=== PATIENT | male | born 1950 | race Caucasian/White ===

== ENCOUNTER 2019-07-22 09:08 | Day surgery (SDC) | payer MEDICARE, MEDICAID ==
[2019-07-14 12:43] LABS: BASOPHILS # (AUTO) 0.1 X10'3 (0-0.2); BASOPHILS % (AUTO) 0.8 % (0-1); EOSINOPHILS # (AUTO) 0.4 X10'3 (0-0.9); EOSINOPHILS % (AUTO) 3.9 % (0-6); LYMPHOCYTES # (AUTO) 2.5 X10'3 (1.1-4.8); LYMPHOCYTES % (AUTO) 23.5 % (21-51); MEAN CORPUSCULAR HEMOGLOBIN 32.7 PG (27.0-31.0); MEAN CORPUSCULAR HGB CONC 34.5 g/dL (33.0-36.5); MEAN CORPUSCULAR VOLUME 94.8 FL (78-98); MONOCYTES # (AUTO) 0.6 X10'3 (0-0.9); MONOCYTES % (AUTO) 5.3 % (2-12); NEUTROPHILS % (AUTO) 66.5 % (42-75); PRE OP HEMATOCRIT 45.5 % (42.0-52.0); PRE OP HEMOGLOBIN 15.7 g/dL (14.0-17.9); PRE OP PLATELET COUNT 238 X10'3 (140-440); RED CELL DISTRIBUTION WIDTH 13.2 % (11.5-14.5)
[2019-07-14 12:54] LABS: ALBUMIN 3.9 G/DL (3.4-5.0); ALKALINE PHOSPHATASE 67 IU/L (46-116); BLOOD UREA NITROGEN 11 MG/DL (7-18); BUN/CREATININE RATIO 12.2 (5.4-32.0); CALCIUM 9.3 MG/DL (8.5-10.1); CHLORIDE 97 MMOL/L (99-107); PRE OP ALT 42 U/L (30-65); PRE OP ANION GAP 10 (8-16); PRE OP AST 23 U/L (10-37); PRE OP BILIRUB, TOTAL 0.5 MG/DL (0.0-1.0); PRE OP POTASSIUM 4.3 MMOL/L (3.4-5.1); PRE OP SODIUM 133 MMOL/L (135-145); TOTAL CARBON DIOXIDE 26.5 MMOL/L (24-32); TOTAL PROTEIN 7.8 G/DL (6.4-8.2); eGFR 84 ML/MIN
[2019-07-14 13:04] LABS: PRE OP GLUCOSE 316 MG/DL (70-104)
[2019-07-14 13:37] LABS: HEMOGLOBIN A1C 10.2 % (4.5-6.2)
[2019-07-14 13:39] LABS: PRE OP PROTIME 10.3 SECONDS (9.0-12.0)
[~2019-07-22] VITALS: Ht 175.3 cm; Wt 87.4 kg
[~2019-07-22 09:08] MED LIST: ARIP2TAB20 PO; ASPI-1264 PO; ATOR20TA66 PO; BACL10TA2 PO; BENA5TAB6 PO; CARV12.545 PO; CHOL50004 PO; FLUO40CA PO; GLIM4TAB4 PO; IPRA3AMP31 INH; METF-950 PO; PANT40TA4 PO
[2019-07-22 09:15] VITALS: BP 141/79
[2019-07-22] MEDS ORDERED: cefazolin/dext.iso 2gm/100ml 100 ML IV ONE (09:25)
[2019-07-22] MEDS ORDERED: ringers solution, lacted 1,000 ML IV SCH ×2 (09:44→09:45)
[2019-07-22] MEDS ORDERED: BUPIVAcaine/PF 2.5 mg/ml (0.25%) 30ml vial ONE (09:45)
[2019-07-22] MEDS ORDERED: fentaNYL/PF 50MCG/1 ML 2ML syringe IV PRN ×2 (09:45)
[2019-07-22] MEDS ORDERED: labetalol 20mg/4ml (5mg/ml) syringe IV PRN (09:45)
[2019-07-22] MEDS ORDERED: hydrALAZINE 20mg/ml inj. IV PRN (09:45)
[2019-07-22] MEDS ORDERED: morphine 4 MG/ML inj SYRINge IV PRN ×2 (09:45)
[2019-07-22] MEDS ORDERED: DOCUMENT DATE & TIME OF BETA-BLOCKER PO ONE (09:45)
[2019-07-22] MEDS ORDERED: famotidine 20mg tablet PO ONE (09:45)
[2019-07-22] MEDS ORDERED: cefazolin/dext.iso 2gm/50ml 50 ML IV ONE (09:45)
[2019-07-22] MEDS ORDERED: albuterol 2.5 MG/3 ML nebule NEB ONE (09:45)
[2019-07-22] MEDS ORDERED: triamcinolone acetonide 40mg/ml inj ONE (09:45)
[2019-07-22] MEDS ORDERED: VANCOMYCIN INJ 1000 MG in NORMAL SALINE 250ml IV.SOLN IV ONE (09:45)
[2019-07-22] MEDS ORDERED: ondansetron/PF 4mg/2ml inj IV PRN (09:45)
[2019-07-22] MEDS ORDERED: insulin regular, human 10 units/0.1 ml syringe SQ ONE (10:00)
[2019-07-22] MEDS ORDERED: fentaNYL/PF 50MCG/1 ML 2ML syringe ONE (10:16)
[2019-07-22] MEDS ORDERED: ondansetron/PF 4mg/2ml inj ONE (10:17)
[2019-07-22] MEDS ORDERED: propofol inj 20 ML IV ONE (10:17)
[2019-07-22] MEDS ORDERED: midazolam 2 mg/2 ml injection ONE (10:17)
[2019-07-22] MEDS ORDERED: sevoflurane 250ml liquid IH ONE (10:19)
[2019-07-22 11:10] VITALS: BP 82/54
--- NOTE | 2019-07-22 11:10 | NUR ---
Received from OR via SON[facility] , accompanied by Anesthesiologist QIAN and report given by Anesthesiolgist. PATIENT WITH 20G PIV IN RIGHT UE RUNNING LR AT 100. LMA IN PLACE. VSS. BIAS WRAP TO RIGHT KNEE WITH + DP PRESENT. Addendum: 07/22/19 at 1119 by Marky Epperson RN, RN Amended: Links added.
[2019-07-22 11:20] VITALS: BP 84/56
[2019-07-22 11:30] VITALS: BP 82/61
[2019-07-22 11:40] VITALS: BP 91/62
[2019-07-22 11:50] VITALS: BP 101/72
--- NOTE | 2019-07-22 12:00 | NUR ---
ALL DC CRITERIA HAS BEEN MET. IV OUT WITHOUT ISSUE. DENIES PAIN. VSS. OUT VIA WHEELCHAIR TO PERSONAL VEHICLE WHERE DROVE PATIENT HOME. PATIENT VOIDED AND DRESSED WITH ASSIST OF . Addendum: 07/22/19 at 1219 by Marky Epperson RN, RN Amended: Links added.
== END 2019-07-22 12:00 | disposition home or self-care (01) ==
LOC: PAS 09:08
PROVIDERS: ATTEND Orthopaedic Surgery
DX: S83.231A Complex tear of medial meniscus, current injury, right knee, initial encounter (principal); S83.281A Other tear of lateral meniscus, current injury, right knee, initial encounter; M94.261 Chondromalacia, right knee; E11.22 Type 2 diabetes mellitus with diabetic chronic kidney disease; I12.9 Hypertensive chronic kidney disease with stage 1 through stage 4 chronic kidney disease, or unspecified chronic kidney disease; N18.3 Chronic kidney disease, stage 3 (moderate); I48.91 Unspecified atrial fibrillation; J44.9 Chronic obstructive pulmonary disease, unspecified; Z98.890 Other specified postprocedural states; Z87.891 Personal history of nicotine dependence; X58.XXXA Exposure to other specified factors, initial encounter; Y93.89 Activity, other specified; Y92.89 Other specified places as the place of occurrence of the external cause; Y99.8 Other external cause status
CPT/HCPCS: 29873; 29879; 29880; 36415; 71046; 80053; 82948; 83036; 85025; 85610; 85730; 93005; 94640; 94760; J1815; J2250; J2405; J2704; J3010; J3301; J3370; J3490; A4215; A4618; A6250; A6449; J7120

== ENCOUNTER 2019-10-18 14:07 | Emergency (ER) | payer MEDICARE, MEDICAID ==
[~2019-10-18] VITALS: Ht 175.3 cm; Wt 87.5 kg
[~2019-10-18 14:07] MED LIST changes: -GLIM4TAB4 PO; +GLIM4TAB7 PO
[2019-10-18 14:22] VITALS: BP 114/69
[2019-10-18] MEDS ORDERED: LIDOcaine 1% W/epiNEPHrine 1:200,000 10ml vial IJ ONE (14:35)
== END 2019-10-18 15:40 | disposition home or self-care (01) ==
LOC: ER 14:07
DX: L02.11 Cutaneous abscess of neck (principal); I48.91 Unspecified atrial fibrillation; E11.9 Type 2 diabetes mellitus without complications; Z79.82 Long term (current) use of aspirin; Z79.899 Other long term (current) drug therapy; Z79.84 Long term (current) use of oral hypoglycemic drugs
CPT/HCPCS: 10060; 99282

== ENCOUNTER 2020-02-03 14:06 | Emergency (ER) | payer MEDICARE, MEDICAID ==
[~2020-02-03] VITALS: Ht 175.3 cm; Wt 89.0 kg
[2020-02-03 14:44] LABS: BASOPHILS # (AUTO) 0.1 X10'3 (0-0.2); BASOPHILS % (AUTO) 1.2 % (0-1); EOSINOPHILS # (AUTO) 0.4 X10'3 (0-0.9); EOSINOPHILS % (AUTO) 4.3 % (0-6); HEMATOCRIT 45.4 % (42.0-52.0); HEMOGLOBIN 15.5 g/dl (14.0-17.9); LYMPHOCYTES # (AUTO) 2.2 X10'3 (1.1-4.8); MEAN CORPUSCULAR HEMOGLOBIN 32.3 PG (27.0-31.0); MEAN CORPUSCULAR VOLUME 94.9 FL (78-98); MEAN PLATELET VOLUME 7.7 FL (7.4-10.4); MONOCYTES # (AUTO) 0.6 X10'3 (0-0.9); MONOCYTES % (AUTO) 5.7 % (2-12); NEUTROPHILS # (AUTO) 6.6 X10'3 (1.8-7.7); NEUTROPHILS % (AUTO) 66.8 % (42-75); PLATELET COUNT 227 X10'3 (140-440); RED BLOOD COUNT 4.79 X10'6 (4.70-6.10); RED CELL DISTRIBUTION WIDTH 12.9 % (11.5-14.5); WHITE BLOOD COUNT 9.9 X10'3 (4.5-11.0)
[2020-02-03 15:00] LABS: ALANINE AMINOTRANSFERASE 37 U/L (12-78); ALBUMIN 3.7 G/DL (3.4-5.0); ALBUMIN/GLOBULIN RATIO 1.1 (1.1-1.5); ALKALINE PHOSPHATASE 68 IU/L (46-116); ANION GAP 9 (8-16); ASPARTATE AMINO TRANSFERASE 18 U/L (10-37); BILIRUBIN,TOTAL 0.6 MG/DL (0.1-1.0); BLOOD UREA NITROGEN 12 MG/DL (7-18); BUN/CREATININE RATIO 9.8 (5.4-32.0); CHLORIDE 97 MMOL/L (99-107); CREATININE 1.23 MG/DL (0.60-1.10); GLUCOSE 391 MG/DL (70-104); POTASSIUM 5.1 MMOL/L (3.5-5.1); SODIUM 133 MMOL/L (135-145); TOTAL CARBON DIOXIDE 26.7 MMOL/L (24-32); TOTAL PROTEIN 7.2 G/DL (6.4-8.2); eGFR 59 ML/MIN
[2020-02-03] MEDS ORDERED: normal saline 1000ML IV soln IVB ONE ×2 (16:40→17:25)
[2020-02-03] MEDS ORDERED: insulin regular, human 10 units/0.1 ml syringe SQ ONE ×2 (17:25→17:50)
[2020-02-03] MEDS ORDERED: insulin regular, human U-100 3ml vial - multi-dose SQ ONE ×2 (17:25→17:55)
[2020-02-03] MEDS ORDERED: traMADol 50MG tablet PO ONE (18:10)
[2020-02-03] MEDS ORDERED: gabapentin 300mg capsule PO ONE (18:10)
[2020-02-03] MEDS ORDERED: PRED20TA PO (19:05)
[2020-02-03 19:30] VITALS: BP 135/85
== END 2020-02-03 19:20 | disposition home or self-care (01) ==
LOC: ER 14:06
DX: R06.02 Shortness of breath (principal); R06.2 Wheezing; J44.9 Chronic obstructive pulmonary disease, unspecified; E11.65 Type 2 diabetes mellitus with hyperglycemia; I48.91 Unspecified atrial fibrillation; G62.9 Polyneuropathy, unspecified; Z79.82 Long term (current) use of aspirin; Z79.899 Other long term (current) drug therapy
CPT/HCPCS: 36415; 71045; 80053; 82948; 84484; 85025; 93005; 96360; 96361; 99285; J7030; J1815

== ENCOUNTER 2020-04-20 14:13 | Emergency (ER) | payer MEDICARE, MEDICAID ==
[~2020-04-20] VITALS: Ht 175.3 cm; Wt 86.4 kg
[2020-04-20] MEDS ORDERED: orphenadrine citrate 60mg/2ml inj. IM ONE (15:05)
[2020-04-20] MEDS ORDERED: ketorolac tromethamine 15mg/ml inj. IM ONE (15:05)
[2020-04-20] MEDS ORDERED: CYCL-1 PO (15:11)
[2020-04-20] MEDS ORDERED: IBUP-1984 PO (15:11)
[2020-04-20 17:11] VITALS: BP 113/78
== END 2020-04-20 16:23 | disposition home or self-care (01) ==
LOC: ER 14:14
DX: G89.29 Other chronic pain (principal); M54.5 Low back pain; I48.91 Unspecified atrial fibrillation; E11.9 Type 2 diabetes mellitus without complications; Z79.82 Long term (current) use of aspirin; Z79.899 Other long term (current) drug therapy
CPT/HCPCS: 72100; 96372; 99284; J1885; J2360

== ENCOUNTER 2020-05-03 10:54 | Emergency (ER) | payer MEDICARE, MEDICAID ==
[~2020-05-03] VITALS: Ht 175.3 cm; Wt 86.4 kg
[~2020-05-03 10:54] MED LIST changes: +CYCL-1 PO
[2020-05-03 10:59] VITALS: BP 159/85
--- NOTE | 2020-05-03 11:35 | NUR ---
pt is 69 yo male c/o lower back pain x3 weeks, pt was carrying a couch, slipped on step and fell backwards onto his back and butt, no loss of bowel/bladder, amb with slow steady gait using a cane, no new numbness (pt said his feet are numb due to diabetes), pt was seen here one week ago and given rx for muscle relaxer and motrin, taking as directed, pt is unable to contact PMD "there is just a answering machine", I suggested he drive to [facility] and make an appointment, pt is waiting to be evaluated by provider
[2020-05-03] MEDS ORDERED: orphenadrine citrate 60mg/2ml inj. IM ONE (12:05)
[2020-05-03] MEDS ORDERED: ketorolac tromethamine 15mg/ml inj. IM ONE (12:05)
[2020-05-03] MEDS ORDERED: METH-360 PO (12:08)
== END 2020-05-03 12:47 | disposition home or self-care (01) ==
LOC: ER 10:56
DX: G89.29 Other chronic pain (principal); M54.5 Low back pain; I48.91 Unspecified atrial fibrillation; E11.9 Type 2 diabetes mellitus without complications; Z79.82 Long term (current) use of aspirin; Z79.899 Other long term (current) drug therapy
CPT/HCPCS: 96372; 99284; J1885; J2360

== ENCOUNTER 2021-06-10 08:48 | Emergency (ER) | payer MEDICARE, MEDICAID ==
[~2021-06-10] VITALS: Ht 175.3 cm; Wt 86.4 kg
[~2021-06-10 08:48] MED LIST changes: +METH-360 PO; -PANT40TA4 PO; +PANT40TA54 PO
[2021-06-10 10:41] VITALS: BP 130/82
--- NOTE | 2021-06-10 10:42 | NUR ---
02 SAT 93-94% RA. LUNGS: WHZ ON RIGHT LOWER LOBES. DR. ALFONSO ORDERED CXR. PT C/O UPPER/MID BACK PAIN.
[2021-06-10] MEDS ORDERED: ibuprofen tablet 400 MG TABLET PO ONE (11:15)
[2021-06-10] MEDS ORDERED: ibuprofen 200mg tablet PO ONE (11:20)
== END 2021-06-10 11:37 | disposition home or self-care (01) ==
LOC: ER 08:48
DX: U07.1 COVID-19 (principal); J22 Unspecified acute lower respiratory infection; I48.91 Unspecified atrial fibrillation; E11.9 Type 2 diabetes mellitus without complications; G89.29 Other chronic pain; Z79.82 Long term (current) use of aspirin; Z79.899 Other long term (current) drug therapy
CPT/HCPCS: 36415; 71045; 99284; U0003; U0005

== ENCOUNTER 2021-06-15 11:02 | Emergency (ER) | payer MEDICARE, MEDICAID ==
[~2021-06-15] VITALS: Ht 175.3 cm; Wt 86.4 kg
[2021-06-15] MEDS ORDERED: CASIRIVIMAB/IMDEVIMAB inject. 10 ML in normal saline 100ml IV soln 100 ML IV ONE ×2 (11:35→12:05)
[2021-06-15] MEDS ORDERED: ondansetron/PF 4mg/2ml inj IV ONE (14:00)
[2021-06-15] MEDS ORDERED: ONDA4TAB6 PO (14:01)
[2021-06-15 14:38] VITALS: BP 136/80
[2021-06-17] MEDS ORDERED: PROC-8 PO (06:34)
[2021-06-17] MEDS ORDERED: LOPE2CAP PO (06:34)
[2021-06-17] MEDS ORDERED: ONDA4TAB6 PO (06:34)
== END 2021-06-15 14:41 | disposition home or self-care (01) ==
LOC: ER 11:03
DX: U07.1 COVID-19 (principal); R06.02 Shortness of breath; M62.838 Other muscle spasm; I48.91 Unspecified atrial fibrillation; E11.9 Type 2 diabetes mellitus without complications; G89.29 Other chronic pain; Z79.82 Long term (current) use of aspirin; Z79.899 Other long term (current) drug therapy
CPT/HCPCS: 96374; 99284; J2405; M0243; Q0244

== ENCOUNTER 2021-06-24 01:20 | Emergency (ER) | payer MEDICARE, MEDICAID ==
[~2021-06-24] VITALS: Ht 175.3 cm; Wt 86.4 kg
[~2021-06-24 01:20] MED LIST changes: +LOPE2CAP PO; +ONDA4TAB6 PO; +PROC-8 PO
--- NOTE | 2021-06-24 01:30 | NUR ---
assumed care. pt stable. nad.
[2021-06-24] MEDS ORDERED: azithromycin 250mg tablet PO ONE (02:40)
[2021-06-24] MEDS ORDERED: DEXAMETHASONE 6 MG TABLET PO ONE (02:46)
[2021-06-24 03:32] LABS: BASOPHILS # (AUTO) 0.1 X10'3 (0-0.2); BASOPHILS % (AUTO) 0.5 % (0-1); EOSINOPHILS # (AUTO) 0.5 X10'3 (0-0.9); EOSINOPHILS % (AUTO) 3.9 % (0-6); HEMATOCRIT 39.4 % (42.0-52.0); HEMOGLOBIN 13.7 g/dl (14.0-17.9); LYMPHOCYTES # (AUTO) 1.4 X10'3 (1.1-4.8); LYMPHOCYTES % (AUTO) 11.2 % (21-51); MEAN CORPUSCULAR HEMOGLOBIN 32.2 PG (27.0-31.0); MEAN CORPUSCULAR HGB CONC 34.7 g/dL (33.0-36.5); MONOCYTES # (AUTO) 0.7 X10'3 (0-0.9); NEUTROPHILS # (AUTO) 9.5 X10'3 (1.8-7.7); NEUTROPHILS % (AUTO) 78.4 % (42-75); PLATELET COUNT 487 X10'3 (140-440); RED BLOOD COUNT 4.24 X10'6 (4.70-6.10); RED CELL DISTRIBUTION WIDTH 12.8 % (11.5-14.5); WHITE BLOOD COUNT 12.1 X10'3 (4.5-11.0)
[2021-06-24 03:54] LABS: ALANINE AMINOTRANSFERASE 117 U/L (12-78); ALBUMIN 2.2 G/DL (3.4-5.0); ALBUMIN/GLOBULIN RATIO 0.4 (1.1-1.5); ALKALINE PHOSPHATASE 67 IU/L (46-116); ANION GAP 9 (8-16); ASPARTATE AMINO TRANSFERASE 45 U/L (10-37); BILIRUBIN,TOTAL 0.5 MG/DL (0.1-1.0); BLOOD UREA NITROGEN 7 MG/DL (7-18); BUN/CREATININE RATIO 7.1 (5.4-32.0); CHLORIDE 99 MMOL/L (99-107); CREATININE 0.98 MG/DL (0.60-1.10); GLUCOSE 225 MG/DL (70-104); POTASSIUM 3.3 MMOL/L (3.5-5.1); SODIUM 137 MMOL/L (135-145); TOTAL CARBON DIOXIDE 29.1 MMOL/L (24-32); TOTAL PROTEIN 7.5 G/DL (6.4-8.2); eGFR 76 ML/MIN
[2021-06-24] MEDS ORDERED: DEC4T PO (04:27)
[2021-06-24] MEDS ORDERED: AZIT250T29 PO (04:27)
[2021-06-24] MEDS ORDERED: ketorolac tromethamine 15mg/ml inj. IV ONE (04:50)
[2021-06-24] MEDS ORDERED: ondansetron/PF 4mg/2ml inj IV ONE (04:50)
--- NOTE | 2021-06-24 08:00 | NUR ---
received page [phone], Call to ER to discuss patient, left on hold for 15 minutes, unable to speak with nurse
--- NOTE | 2021-06-24 08:22 | NUR ---
Received page from ER, on hold for 10 minutes, unable to speak with nurse
--- NOTE | 2021-06-24 08:40 | NUR ---
call back to ER spoke with an RN who is not caring for patient, asked for her to please have patient nurse call or page to discuss oxygen for patient discharge, asked to have nurse document that patient is on O2, no documentation, can not set up home o2 at this time
[2021-06-24 09:30] VITALS: BP 155/76
== END 2021-06-24 08:21 | disposition home or self-care (01) ==
LOC: ER 01:21
DX: U07.1 COVID-19 (principal); J22 Unspecified acute lower respiratory infection; R09.02 Hypoxemia; I48.91 Unspecified atrial fibrillation; E11.9 Type 2 diabetes mellitus without complications; G89.29 Other chronic pain; Z79.899 Other long term (current) drug therapy; Z79.82 Long term (current) use of aspirin
CPT/HCPCS: 36415; 71045; 80053; 85025; 93005; 96374; 96375; 99285; J1885; J2405; J8540

== ENCOUNTER 2021-07-27 17:03 | Emergency (ER) | payer MEDICARE, MEDICAID ==
[~2021-07-27 17:03] MED LIST changes: +BENA5TAB26 PO; -BENA5TAB6 PO; +METF-1203 PO; -METF-950 PO
[2021-07-28] MEDS ORDERED: ASPI-1071 PO (10:37)
[2021-07-28] MEDS ORDERED: METF-438 PO (10:37)
[2021-07-28] MEDS ORDERED: ATOR10TA70 PO (10:37)
[2021-07-28] MEDS ORDERED: FLUT1BLS16 INH (10:54)
[2021-07-28] MEDS ORDERED: POTA8CAP20 PO (10:54)
[2021-07-28] MEDS ORDERED: MONT-40 PO (10:54)
[2021-07-28] MEDS ORDERED: FURO20TA4 PO (10:54)
[2021-07-28] MEDS ORDERED: LANTUS SQ (10:54)
[2021-07-28] MEDS ORDERED: GABA600T13 PO (10:54)
== END 2021-07-27 19:46 | disposition left against medical advice (07) ==
LOC: ER 17:04
DX: I10 Essential (primary) hypertension (principal); Z53.21 Procedure and treatment not carried out due to patient leaving prior to being seen by health care provider

== ENCOUNTER 2021-07-27 19:53 | Inpatient (IN) | payer MEDICARE, MEDICAID ==
[~2021-07-27] VITALS: Ht 175.3 cm; Wt 86.0 kg
[2021-07-27 20:44] LABS: BASOPHILS % (AUTO) 0.2 % (0-1); EOSINOPHILS % (AUTO) 0 % (0-6); HEMATOCRIT 40.8 % (42.0-52.0); HEMOGLOBIN 14.2 g/dl (14.0-17.9); LYMPHOCYTES # (AUTO) 1.8 X10'3 (1.1-4.8); LYMPHOCYTES % (AUTO) 12.4 % (21-51); MEAN CORPUSCULAR HEMOGLOBIN 32.1 PG (27.0-31.0); MEAN CORPUSCULAR HGB CONC 34.7 g/dL (33.0-36.5); MEAN CORPUSCULAR VOLUME 92.4 FL (78-98); MEAN PLATELET VOLUME 7.6 FL (7.4-10.4); MONOCYTES # (AUTO) 0.7 X10'3 (0-0.9); MONOCYTES % (AUTO) 4.6 % (2-12); NEUTROPHILS # (AUTO) 12.2 X10'3 (1.8-7.7); NEUTROPHILS % (AUTO) 82.8 % (42-75); PLATELET COUNT 317 X10'3 (140-440); RED BLOOD COUNT 4.42 X10'6 (4.70-6.10); RED CELL DISTRIBUTION WIDTH 13.6 % (11.5-14.5); WHITE BLOOD COUNT 14.8 X10'3 (4.5-11.0)
[2021-07-27 21:03] LABS: ALANINE AMINOTRANSFERASE 35 U/L (12-78); ALBUMIN 3.8 G/DL (3.4-5.0); ALKALINE PHOSPHATASE 64 IU/L (46-116); ANION GAP 11 (8-16); ASPARTATE AMINO TRANSFERASE 17 U/L (10-37); BILIRUBIN,TOTAL 0.5 MG/DL (0.1-1.0); BLOOD UREA NITROGEN 23 MG/DL (7-18); CALCIUM 8.8 MG/DL (8.5-10.1); CHLORIDE 90 MMOL/L (99-107); CREATININE 1.64 MG/DL (0.60-1.10); POTASSIUM 4.8 MMOL/L (3.5-5.1); SODIUM 129 MMOL/L (135-145); TOTAL CARBON DIOXIDE 27.8 MMOL/L (24-32); TOTAL PROTEIN 7.8 G/DL (6.4-8.2); eGFR 42 ML/MIN
[2021-07-27 21:07] LABS: GLUCOSE 587 MG/DL (70-104)
[2021-07-27] MEDS ORDERED: insulin regular, human U-100 3ml vial - multi-dose IV PRN (21:15)
[2021-07-27] MEDS ORDERED: insulin regular, human 10 units/0.1 ml syringe IV ONE (21:25)
[2021-07-27] MEDS: normal saline 1000ml 1,000 ML IV SCH (21:49)
[2021-07-27 21:54] LABS: MAGNESIUM 1.7 MG/DL (1.5-2.4); PHOSPHORUS 4.7 MG/DL (2.3-4.5)
[2021-07-27 21:59] LABS: CLARITY,URINE CLEAR (Clear); COLOR,URINE YELLOW (Yellow); GLUCOSE, URINE >=1000 mg/dl (Neg); KETONES,URINE NEGATIVE (Neg); LEUKOCYTE ESTERASE ,URINE NEGATIVE (Neg); NITRITES, URINE NEGATIVE (Neg); OCCULT BLOOD,URINE NEGATIVE (Neg); PH,URINE 5.5 (4.8-8.0); PROTEIN,URINE NEGATIVE (Neg); UROBILINOGEN,URINE 0.2 E.U/dL (0.2-1.0)
[2021-07-27 22:03] LABS: UA COLLECTION TYPE CLN CATCH MIDSTREAM
[2021-07-27 22:15] LABS: BACTERIA,URINE NONE SEEN /HPF (Neg); RBC,URINE 0-2 /HPF (0-2); SQUAMOUS EPITHELIAL CELL,UR FEW /LPF (FEW); WBC,URINE NONE SEEN /HPF (0-4)
[2021-07-27 23:44] LABS: ABG BASE EXCESS 1.7 mmol/L (-2.0-2.0); ABG HCO3 27.1 mmol/L (22.0-26.0); ABG PCO2 (T) 44.1 mmHg (35.0-48.0); ABG PO2 (T) 97.9 mmHg (75.0-100.0); FCOHb 0.8 % (0.0-3.9); FLOW 2 L/min; FMetHb 0.3 % (0.0-1.5); FO2Hb 95.9 % (94-97); PATIENT TEMPERATURE 36.4
[2021-07-28] MEDS ORDERED: CefTRIAXone/D5W-Rocephin 1gm 50 ML IV ONE (00:05)
[2021-07-28] MEDS ORDERED: normal saline 1000ML IV soln IV ONE (00:05)
[2021-07-28] MEDS ORDERED: azithromycin/NS 500mg/250ml 250 ML IV ONE (00:05)
[2021-07-28] MEDS: normal saline 1000ml 1,000 ML IV SCH ×4 (00:25→08:12)
[2021-07-28] MEDS ORDERED: magnesium Cl slow-release 64mg tablet PO PRN (00:30)
[2021-07-28] MEDS ORDERED: dextrose 50%-water 50ml dispensing syringe IV PRN ×2 (00:30)
[2021-07-28] MEDS ORDERED: MESSAGE TO PHARMACY PO ONE (00:30)
[2021-07-28] MEDS ORDERED: potassium Cl 20 mEq SR tablet PO PRN ×2 (00:30)
[2021-07-28] MEDS ORDERED: HYDROcodone/acetaminophen 5mg/325mg tablet PO PRN (00:30)
[2021-07-28] MEDS ORDERED: magnesium 4gm in 100ml NS 100 ML IV PRN (00:30)
[2021-07-28] MEDS ORDERED: magnesium 2GM in 50ml NS 50 ML IV PRN (00:30)
[2021-07-28] MEDS ORDERED: potassium CL 10mEq/100ml bag 100 ML IV PRN (00:30)
[2021-07-28] MEDS ORDERED: morphine 2 MG/ML inj. syringe IV PRN ×2 (00:30)
[2021-07-28] MEDS ORDERED: glucagon, human recombinant 1mg kit SUBCUT PRN (00:30)
[2021-07-28] MEDS ORDERED: acetaminophen 325mg tablet PO PRN ×2 (00:30)
[2021-07-28] MEDS ORDERED: dextrose ORAL solution 15 GM/59 ML bottle PO PRN ×2 (00:30)
[2021-07-28 02:08] LABS: CLARITY,URINE CLEAR (Clear); COLOR,URINE YELLOW (Yellow); GLUCOSE, URINE >=1000 mg/dl (Neg); KETONES,URINE NEGATIVE (Neg); LEUKOCYTE ESTERASE ,URINE NEGATIVE (Neg); NITRITES, URINE NEGATIVE (Neg); OCCULT BLOOD,URINE NEGATIVE (Neg); PH,URINE 6.5 (4.8-8.0); PROTEIN,URINE NEGATIVE (Neg); UROBILINOGEN,URINE 0.2 E.U/dL (0.2-1.0)
[2021-07-28 02:14] LABS: UA COLLECTION TYPE CLN CATCH MIDSTREAM
[2021-07-28 02:15] LABS: RBC,URINE 0-2 /HPF (0-2); WBC,URINE NONE SEEN /HPF (0-4)
[2021-07-28 02:16] LABS: BACTERIA,URINE NONE SEEN /HPF (Neg); SQUAMOUS EPITHELIAL CELL,UR FEW /LPF (FEW)
[2021-07-28 07:24] LABS: POTASSIUM 4.1 MMOL/L (3.5-5.1)
[2021-07-28] MEDS: heparin, porcine 5000 units/ml vial SQ SCH ×2 (07:28→21:01)
[2021-07-28] MEDS: CefTRIAXone 2gm/D5W 50ml BAG 50 ML IV SCH (07:29)
[2021-07-28] MEDS: K and/or MAG REPLACEMENT MC SCH ×2 (07:41→21:00)
--- NOTE | 2021-07-28 07:59 | NUR ---
vilma [phone]
[2021-07-28] MEDS: azithromycin/NS 500mg/250ml 250 ML IV SCH (08:11)
[2021-07-28] MEDS ORDERED: ASPI-1071 PO (10:37)
[2021-07-28] MEDS ORDERED: ATOR10TA70 PO (10:37)
[2021-07-28] MEDS ORDERED: METF-438 PO (10:37)
[2021-07-28] MEDS ORDERED: MONT-40 PO (10:54)
[2021-07-28] MEDS ORDERED: GABA600T13 PO (10:54)
[2021-07-28] MEDS ORDERED: FLUT1BLS16 INH (10:54)
[2021-07-28] MEDS ORDERED: LANTUS SQ (10:54)
[2021-07-28] MEDS ORDERED: FURO20TA4 PO (10:54)
[2021-07-28] MEDS ORDERED: POTA8CAP20 PO (10:54)
[2021-07-28] MEDS: insulin Lispro (HumaLOG) vial - multi-dose SQ SCH ×3 (11:26→20:43)
[2021-07-28] MEDS: HYDROcodone/acetaminophen 10/325mg tab PO PRN ×2 (11:54→18:15)
--- NOTE | 2021-07-28 16:53 | NUR ---
pt stated he still has headache after tylenol and david pt requesting a "shot" of something
[2021-07-28 20:05] LABS: BASOPHILS # (AUTO) 0.1 X10'3 (0-0.2); BASOPHILS % (AUTO) 0.8 % (0-1); EOSINOPHILS # (AUTO) 0.4 X10'3 (0-0.9); EOSINOPHILS % (AUTO) 3.6 % (0-6); HEMATOCRIT 37.4 % (42.0-52.0); HEMOGLOBIN 13.2 g/dl (14.0-17.9); LYMPHOCYTES # (AUTO) 3.5 X10'3 (1.1-4.8); LYMPHOCYTES % (AUTO) 28.8 % (21-51); MEAN CORPUSCULAR HEMOGLOBIN 32.3 PG (27.0-31.0); MEAN CORPUSCULAR HGB CONC 35.3 g/dL (33.0-36.5); MEAN CORPUSCULAR VOLUME 91.5 FL (78-98); MEAN PLATELET VOLUME 7.3 FL (7.4-10.4); MONOCYTES # (AUTO) 0.6 X10'3 (0-0.9); MONOCYTES % (AUTO) 5.1 % (2-12); NEUTROPHILS # (AUTO) 7.5 X10'3 (1.8-7.7); NEUTROPHILS % (AUTO) 61.7 % (42-75); PLATELET COUNT 270 X10'3 (140-440); RED BLOOD COUNT 4.08 X10'6 (4.70-6.10); RED CELL DISTRIBUTION WIDTH 13.2 % (11.5-14.5); WHITE BLOOD COUNT 12.1 X10'3 (4.5-11.0)
[2021-07-28 20:40] LABS: ALANINE AMINOTRANSFERASE 34 U/L (12-78); ALBUMIN 3.1 G/DL (3.4-5.0); ALBUMIN/GLOBULIN RATIO 0.9 (1.1-1.5); ALKALINE PHOSPHATASE 51 IU/L (46-116); ANION GAP 7 (8-16); ASPARTATE AMINO TRANSFERASE 20 U/L (10-37); BILIRUBIN,TOTAL 0.4 MG/DL (0.1-1.0); BLOOD UREA NITROGEN 10 MG/DL (7-18); BUN/CREATININE RATIO 11.2 (5.4-32.0); CALCIUM 7.9 MG/DL (8.5-10.1); CHLORIDE 98 MMOL/L (99-107); CREATININE 0.89 MG/DL (0.60-1.10); GLUCOSE 223 MG/DL (70-104); POTASSIUM 3.6 MMOL/L (3.5-5.1); SODIUM 135 MMOL/L (135-145); TOTAL CARBON DIOXIDE 30.5 MMOL/L (24-32); TOTAL PROTEIN 6.6 G/DL (6.4-8.2); eGFR 85 ML/MIN
[2021-07-28 21:00] VITALS: BP 97/71
[2021-07-28] MEDS ORDERED: temazepam 15mg capsule PO PRN (21:00)
[2021-07-28] MEDS ORDERED: insulin glargine (Lantus) pen - multi-dose SQ SCH (21:00)
[2021-07-28] MEDS: lactobacillus rhamnosus 10,000 MMU CELLS/CAPSULE PO SCH (21:01)
[2021-07-29 03:46] VITALS: BP 161/74
[2021-07-29] MEDS: HYDROcodone/acetaminophen 10/325mg tab PO PRN ×2 (03:56→03:58)
[2021-07-29] MEDS: ondansetron/PF 4mg/2ml inj IV PRN ×2 (05:06→06:00)
[2021-07-29 06:00] VITALS: BP 144/72
--- NOTE | 2021-07-29 06:30 | NUR ---
Patient in room PCU 3022. I have received report from Gisela PAGAN and had the opportunity to ask questions and assume patient care.
[2021-07-29] MEDS: lactobacillus rhamnosus 10,000 MMU CELLS/CAPSULE PO SCH (07:29)
[2021-07-29] MEDS: normal saline 1000ml 1,000 ML IV SCH (07:29)
[2021-07-29] MEDS: heparin, porcine 5000 units/ml vial SQ SCH (07:29)
[2021-07-29] MEDS: CefTRIAXone 2gm/D5W 50ml BAG 50 ML IV SCH (07:30)
[2021-07-29] MEDS: K and/or MAG REPLACEMENT MC SCH (07:30)
[2021-07-29 08:05] LABS: BASOPHILS # (AUTO) 0.1 X10'3 (0-0.2); EOSINOPHILS # (AUTO) 0.5 X10'3 (0-0.9); HEMATOCRIT 38.6 % (42.0-52.0); HEMOGLOBIN 13.2 g/dl (14.0-17.9); LYMPHOCYTES # (AUTO) 2.7 X10'3 (1.1-4.8); MEAN CORPUSCULAR HEMOGLOBIN 31.7 PG (27.0-31.0); MEAN CORPUSCULAR HGB CONC 34.2 g/dL (33.0-36.5); MEAN CORPUSCULAR VOLUME 92.7 FL (78-98); MEAN PLATELET VOLUME 8.2 FL (7.4-10.4); MONOCYTES # (AUTO) 0.7 X10'3 (0-0.9); MONOCYTES % (AUTO) 5.8 % (2-12); NEUTROPHILS # (AUTO) 7.8 X10'3 (1.8-7.7); NEUTROPHILS % (AUTO) 66.2 % (42-75); PLATELET COUNT 235 X10'3 (140-440); RED BLOOD COUNT 4.17 X10'6 (4.70-6.10); RED CELL DISTRIBUTION WIDTH 13.7 % (11.5-14.5); WHITE BLOOD COUNT 11.8 X10'3 (4.5-11.0)
[2021-07-29] MEDS: azithromycin/NS 500mg/250ml 250 ML IV SCH (08:12)
[2021-07-29] MEDS: insulin Lispro (HumaLOG) vial - multi-dose SQ SCH ×2 (08:18→13:30)
--- NOTE | 2021-07-29 08:58 | NUR ---
Problems reprioritized. Patient report given, questions answered & plan of care reviewed with Edith PAGAN.
[2021-07-29 09:06] LABS: ALANINE AMINOTRANSFERASE 38 U/L (12-78); ALBUMIN 2.9 G/DL (3.4-5.0); ALBUMIN/GLOBULIN RATIO 0.8 (1.1-1.5); ALKALINE PHOSPHATASE 50 IU/L (46-116); ANION GAP 8 (8-16); ASPARTATE AMINO TRANSFERASE 32 U/L (10-37); BILIRUBIN,TOTAL 0.4 MG/DL (0.1-1.0); BLOOD UREA NITROGEN 7 MG/DL (7-18); BUN/CREATININE RATIO 9.1 (5.4-32.0); CHLORIDE 100 MMOL/L (99-107); CREATININE 0.77 MG/DL (0.60-1.10); GLUCOSE 218 MG/DL (70-104); MAGNESIUM 1.7 MG/DL (1.5-2.4); PHOSPHORUS 2.7 MG/DL (2.3-4.5); POTASSIUM 3.5 MMOL/L (3.5-5.1); SODIUM 137 MMOL/L (135-145); TOTAL CARBON DIOXIDE 29.3 MMOL/L (24-32); TOTAL PROTEIN 6.4 G/DL (6.4-8.2); eGFR > 90 ML/MIN
--- NOTE | 2021-07-29 10:00 | NUR ---
Patient in room PCU 3022. I have received report from Dereck PAGAN and had the opportunity to ask questions and assume patient care. Patient is resting comfortably
--- NOTE | 2021-07-29 11:52 | NUR ---
PAGER ID: [phone] MESSAGE: Room 3022A: Angel Powell: Spoke with patient, he stated he might be going home today. Concerned because he has no prescription for insulin until he goes to his new PCP in 2 weeks. Can we make sure he leaves with insulin? Edith [phone]
--- NOTE | 2021-07-29 13:20 | NUR ---
Diabetes consult: Noted A1C 10.7. Provided pt w/ written and verbal DM education w/ RD contact info. Pt receptive of information Addendum: 07/29/21 at [address] Amended: Links added.
[2021-07-29] MEDS ORDERED: AZIT500T9 PO (14:13)
[2021-07-29] MEDS ORDERED: CEFD300C3 PO (14:13)
[2021-07-29] MEDS ORDERED: LACT1CAP26 PO (14:13)
--- NOTE | 2021-07-29 14:33 | NUR ---
PAGER ID: [phone] MESSAGE: Room 3022A: Angel Powell: Patient does not have a current prescription for his diabetic meds at home. He has an appt with a new primary care in 2 weeks to fill these. Can we send home with a script to cover the 14 days? Edith [phone]
--- NOTE | 2021-07-29 15:35 | NUR ---
PAGER ID: [phone] MESSAGE: Room 3022A: Angel Powell: Patient has DC orders but lacks access to his diabetic meds at home (Metformin/Lantus) until he meets with his new primary care in 2 weeks. Can we prescribe him this medication until his appt? Edith 2021
--- NOTE | 2021-07-29 17:15 | NUR ---
Patient is stable for discharge per MD. All discharge instructions reviewed with patient and all questions answered.New prescriptions called into the pharmacy and sent electronically. PIV discontinued and canula was intact. Tele was discontinued. All belongings were taken down to the car with the patient. Patients provided transportation home. Wheeled to the lobby.
[2021-07-29] MEDS ORDERED: APIX5TAB3 PO (23:53)
== END 2021-07-29 16:40 | disposition home or self-care (01) | DRG 194 ==
LOC: ER 19:54 → ED HOLD 07-28 00:34 → PCU 3S 07-28 20:23
PROVIDERS: ADMIT Internal Medicine; ATTEND Family Medicine
DX: J18.9 Pneumonia, unspecified organism (principal); E87.1 Hypo-osmolality and hyponatremia; I48.20 Chronic atrial fibrillation, unspecified; N17.9 Acute kidney failure, unspecified; E11.22 Type 2 diabetes mellitus with diabetic chronic kidney disease; E11.65 Type 2 diabetes mellitus with hyperglycemia; F12.90 Cannabis use, unspecified, uncomplicated; F41.9 Anxiety disorder, unspecified; U09.9 Post COVID-19 condition, unspecified; N18.30 Chronic kidney disease, stage 3 unspecified; G89.29 Other chronic pain; M54.9 Dorsalgia, unspecified; Z71.41 Alcohol abuse counseling and surveillance of alcoholic; Z71.51 Drug abuse counseling and surveillance of drug abuser; Z72.89 Other problems related to lifestyle
CPT/HCPCS: 36415; 36600; 71045; 80053; 81001; 82803; 82948; 83036; 83605; 83735; 83880; 83930; 84100; 84132; 84145; 84484; 85018; 85025; 87040; 87502; 87503; 93005; 99285; G0378; J0456; J0696; J1644; J1815; J2405; J7030

== ENCOUNTER 2022-04-23 21:09 | Emergency (ER) | payer BC, MEDICAID ==
[~2022-04-23] VITALS: Ht 175.3 cm; Wt 81.8 kg
[~2022-04-23 21:09] MED LIST changes: +APIX5TAB3 PO; +ASPI-1071 PO; -ASPI-1264 PO; +ATOR10TA70 PO; -ATOR20TA66 PO; +AZIT500T9 PO; -BACL10TA2 PO; -CYCL-1 PO; +FLUT1BLS16 INH; +FURO20TA4 PO; +GABA600T13 PO; -GLIM4TAB7 PO; -IPRA3AMP31 INH; +LACT1CAP26 PO; +LANTUS SQ; -LOPE2CAP PO; -METF-1203 PO; +METF-438 PO; -METH-360 PO; +MONT-40 PO; -ONDA4TAB6 PO; -PANT40TA54 PO; +POTA8CAP20 PO; -PROC-8 PO
[2022-04-23 21:15] VITALS: BP 130/67
[2022-04-23] MEDS ORDERED: ondansetron 4mg rapidly disintigrating tab PO ONE (22:25)
[2022-04-23] MEDS ORDERED: cephalexin 250mg capsule PO ONE (22:25)
[2022-04-23 22:53] LABS: ALANINE AMINOTRANSFERASE 29 U/L (12-78); ALBUMIN/GLOBULIN RATIO 0.8 (1.1-1.5); ALKALINE PHOSPHATASE 68 IU/L (46-116); ANION GAP 8 (8-16); ASPARTATE AMINO TRANSFERASE 18 U/L (10-37); BILIRUBIN,TOTAL 0.2 MG/DL (0.1-1.0); BLOOD UREA NITROGEN 6 MG/DL (7-18); BUN/CREATININE RATIO 6.2 (5.4-32.0); CALCIUM 8.3 MG/DL (8.5-10.1); CHLORIDE 99 MMOL/L (99-107); CREATININE 0.97 MG/DL (0.60-1.10); GLUCOSE 291 MG/DL (70-104); POTASSIUM 4.2 MMOL/L (3.5-5.1); SODIUM 136 MMOL/L (135-145); TOTAL CARBON DIOXIDE 29.1 MMOL/L (24-32); TOTAL PROTEIN 6.6 G/DL (6.4-8.2); eGFR 77 ML/MIN
[2022-04-23 22:54] LABS: BASOPHILS # (AUTO) 0.1 X10'3 (0-0.2); BASOPHILS % (AUTO) 1.1 % (0-1); EOSINOPHILS # (AUTO) 0.5 X10'3 (0-0.9); EOSINOPHILS % (AUTO) 4.6 % (0-6); HEMOGLOBIN 13.2 g/dl (14.0-17.9); LYMPHOCYTES # (AUTO) 2.8 X10'3 (1.1-4.8); MEAN CORPUSCULAR HGB CONC 33.8 g/dL (33.0-36.5); MEAN CORPUSCULAR VOLUME 94.5 FL (78-98); MEAN PLATELET VOLUME 7.5 FL (7.4-10.4); MONOCYTES # (AUTO) 0.8 X10'3 (0-0.9); MONOCYTES % (AUTO) 6.9 % (2-12); NEUTROPHILS # (AUTO) 7.3 X10'3 (1.8-7.7); NEUTROPHILS % (AUTO) 63.4 % (42-75); PLATELET COUNT 235 X10'3 (140-440); RED BLOOD COUNT 4.13 X10'6 (4.70-6.10); RED CELL DISTRIBUTION WIDTH 13.1 % (11.5-14.5); WHITE BLOOD COUNT 11.5 X10'3 (4.5-11.0)
[2022-04-23] MEDS ORDERED: CEPH250T PO (23:23)
== END 2022-04-23 23:33 | disposition home or self-care (01) ==
LOC: ER 21:10
DX: L03.032 Cellulitis of left toe (principal); R60.9 Edema, unspecified; N17.9 Acute kidney failure, unspecified; E11.9 Type 2 diabetes mellitus without complications; G89.29 Other chronic pain; M54.50 Low back pain, unspecified; F12.90 Cannabis use, unspecified, uncomplicated
CPT/HCPCS: 36415; 73660; 80053; 83880; 84145; 85025; 85610; 93005; 99285

== ENCOUNTER 2022-06-16 03:30 | Emergency (ER) | payer BC, MEDICAID ==
[~2022-06-16] VITALS: Ht 175.3 cm; Wt 86.4 kg
[2022-06-16] MEDS ORDERED: morphine 2 MG/ML inj. syringe IV ONE (04:30)
[2022-06-16 04:32] LABS: BASOPHILS # (AUTO) 0.1 X10'3 (0-0.2); BASOPHILS % (AUTO) 0.9 % (0-1); EOSINOPHILS # (AUTO) 0.6 X10'3 (0-0.9); HEMATOCRIT 41.9 % (42.0-52.0); HEMOGLOBIN 14.1 g/dl (14.0-17.9); LYMPHOCYTES # (AUTO) 2.9 X10'3 (1.1-4.8); LYMPHOCYTES % (AUTO) 20.2 % (21-51); MEAN CORPUSCULAR HEMOGLOBIN 31.4 PG (27.0-31.0); MEAN CORPUSCULAR HGB CONC 33.6 g/dL (33.0-36.5); MEAN CORPUSCULAR VOLUME 93.4 FL (78-98); MEAN PLATELET VOLUME 7.3 FL (7.4-10.4); MONOCYTES # (AUTO) 0.9 X10'3 (0-0.9); MONOCYTES % (AUTO) 6.1 % (2-12); NEUTROPHILS # (AUTO) 9.7 X10'3 (1.8-7.7); NEUTROPHILS % (AUTO) 68.8 % (42-75); PLATELET COUNT 253 X10'3 (140-440); RED BLOOD COUNT 4.49 X10'6 (4.70-6.10); RED CELL DISTRIBUTION WIDTH 12.9 % (11.5-14.5); WHITE BLOOD COUNT 14.2 X10'3 (4.5-11.0)
[2022-06-16] MEDS: diatr meglu/diatrizoate 30ml oral sol.-(3 dose) bottle PO SCH ×6 (04:40→06:21)
--- NOTE | 2022-06-16 04:40 | NUR ---
1st dose po contrast given
[2022-06-16 04:47] LABS: ALANINE AMINOTRANSFERASE 29 U/L (12-78); ALBUMIN 3.4 G/DL (3.4-5.0); ALBUMIN/GLOBULIN RATIO 0.9 (1.1-1.5); ALKALINE PHOSPHATASE 77 IU/L (46-116); AMYLASE 73 U/L (25-115); ANION GAP 6 (8-16); ASPARTATE AMINO TRANSFERASE 23 U/L (10-37); BILIRUBIN,TOTAL 0.2 MG/DL (0.1-1.0); BLOOD UREA NITROGEN 13 MG/DL (7-18); BUN/CREATININE RATIO 9.9 (5.4-32.0); CHLORIDE 97 MMOL/L (99-107); CREATININE 1.31 MG/DL (0.60-1.10); GLUCOSE 251 MG/DL (70-104); LIPASE 301 U/L (73-393); POTASSIUM 4.1 MMOL/L (3.5-5.1); SODIUM 133 MMOL/L (135-145); TOTAL CARBON DIOXIDE 29.9 MMOL/L (24-32); TOTAL PROTEIN 7.4 G/DL (6.4-8.2); eGFR 54 ML/MIN
--- NOTE | 2022-06-16 05:25 | NUR ---
2nd dose po contrast given
[2022-06-16] MEDS ORDERED: iohexol 300mg/ml 100ml inj. ONE (06:03)
--- NOTE | 2022-06-16 06:15 | NUR ---
3rd dose given ct informed
[2022-06-16 06:26] LABS: CLARITY,URINE CLEAR (Clear); COLOR,URINE YELLOW (Yellow); GLUCOSE, URINE 250 mg/dl (Neg); KETONES,URINE NEGATIVE (Neg); LEUKOCYTE ESTERASE ,URINE NEGATIVE (Neg); NITRITES, URINE NEGATIVE (Neg); OCCULT BLOOD,URINE NEGATIVE (Neg); PROTEIN,URINE NEGATIVE (Neg); UROBILINOGEN,URINE 0.2 E.U/dL (0.2-1.0)
[2022-06-16 06:42] LABS: UA COLLECTION TYPE CLN CATCH MIDSTREAM
[2022-06-16] MEDS ORDERED: morphine 4 MG/ML inj SYRINge IV ONE (07:35)
[2022-06-16] MEDS ORDERED: HYDROcodone/acetaminophen 5mg/325mg tablet PO ONE (08:00)
[2022-06-16] MEDS ORDERED: HYDR-3965 PO (08:00)
[2022-06-16 08:27] VITALS: BP 158/89
== END 2022-06-16 08:29 | disposition home or self-care (01) ==
LOC: ER 03:30
DX: R10.9 Unspecified abdominal pain (principal); G89.29 Other chronic pain; M54.50 Low back pain, unspecified; E11.9 Type 2 diabetes mellitus without complications; F12.90 Cannabis use, unspecified, uncomplicated
CPT/HCPCS: 36415; 74177; 80053; 81003; 82150; 83690; 85025; 96374; 96376; 99285; J2270; J3490; Q9963; Q9967

== ENCOUNTER 2022-06-22 02:45 | Emergency (ER) | payer BC, MEDICAID ==
[~2022-06-22] VITALS: Ht 175.3 cm; Wt 82.0 kg
[~2022-06-22 02:45] MED LIST changes: +HYDR-3965 PO
[2022-06-22 03:04] VITALS: BP 141/87
[2022-06-22] MEDS ORDERED: HYDROcodone/acetaminophen 5mg/325mg tablet PO ONE (03:50)
[2022-06-22] MEDS ORDERED: ketorolac trometh inj. 60 MG/2 ML VIAL IM ONE (03:50)
== END 2022-06-22 05:40 | disposition home or self-care (01) ==
LOC: ER 02:45
DX: M79.604 Pain in right leg (principal); R42 Dizziness and giddiness; M25.571 Pain in right ankle and joints of right foot; M25.551 Pain in right hip; M25.561 Pain in right knee; E11.42 Type 2 diabetes mellitus with diabetic polyneuropathy; I48.91 Unspecified atrial fibrillation; G89.29 Other chronic pain; F12.90 Cannabis use, unspecified, uncomplicated; Z72.89 Other problems related to lifestyle; Z79.82 Long term (current) use of aspirin; Z79.2 Long term (current) use of antibiotics; Z79.4 Long term (current) use of insulin; Z79.899 Other long term (current) drug therapy
CPT/HCPCS: 29505; 71046; 73502; 73564; 73610; 96372; 99284; J1885

== ENCOUNTER 2023-04-22 13:05 | Emergency (ER) | payer BC, MEDICAID ==
[~2023-04-22] VITALS: Ht 175.3 cm; Wt 86.4 kg
[2023-04-22 13:16] VITALS: BP 97/67; PULSE 61; TEMP 97.2; O2SAT 95
[2023-04-22] MEDS ORDERED: NAPR-56 PO (16:25)
[2023-04-22] MEDS ORDERED: ketorolac tromethamine 15mg/ml inj. IM ONE (17:25)
[2023-04-22 17:41] VITALS: RESP 18
== END 2023-04-22 17:56 | disposition home or self-care (01) ==
LOC: ER 13:05
DX: S93.401A Sprain of unspecified ligament of right ankle, initial encounter (principal); S93.402A Sprain of unspecified ligament of left ankle, initial encounter; E11.9 Type 2 diabetes mellitus without complications; F12.90 Cannabis use, unspecified, uncomplicated; Z79.899 Other long term (current) drug therapy; Z79.82 Long term (current) use of aspirin; Z79.2 Long term (current) use of antibiotics; X58.XXXA Exposure to other specified factors, initial encounter; Y93.89 Activity, other specified; Y92.89 Other specified places as the place of occurrence of the external cause; Y99.8 Other external cause status
CPT/HCPCS: 93970; 96372; 99285; J1885

== ENCOUNTER 2023-11-28 07:31 | Emergency (ER) | payer BC, MEDICAID ==
[~2023-11-28] VITALS: Ht 175.3 cm; Wt 87.3 kg
[2023-11-28 07:33] VITALS: BP 135/78; PULSE 84; TEMP 98.6; O2SAT 94
[2023-11-28] MEDS: DOXYCYCLINE 100MG CAPSULE PO STA (08:14)
[2023-11-28] MEDS: TETanus/Pertussis (Acell)/Diphther VAC/PF (Tdap-Adult) 0.5ml syringe IMVAC ONE (08:17)
[2023-11-28 08:20] VITALS: RESP 14
[2023-11-28] MEDS: HYDROcodone/acetaminophen 10/325mg tab PO ONE (08:20)
[2023-11-28] MEDS: LIDOcaine 1% W/epiNEPHrine 1:100,000 20ml vial IJ ONE (08:29)
[2023-11-28] MEDS ORDERED: HYDR-3965 PO (08:43)
[2023-11-28] MEDS ORDERED: DOXY-225 PO (08:43)
== END 2023-11-28 09:12 | disposition home or self-care (01) ==
LOC: ER 07:32
DX: K13.0 Diseases of lips (principal); E11.9 Type 2 diabetes mellitus without complications; F12.90 Cannabis use, unspecified, uncomplicated; Z79.899 Other long term (current) drug therapy; Z79.82 Long term (current) use of aspirin
CPT/HCPCS: 10060; 90471; 90715; 99283; A6449

== ENCOUNTER 2024-11-30 05:51 | Emergency (ER) | payer BC, MEDICAID ==
[~2024-11-30] VITALS: Ht 175.3 cm; Wt 81.8 kg
[~2024-11-30 05:51] MED LIST changes: +AMOX-580 PO; -ARIP2TAB20 PO; +ARIP2TAB67 PO; -ASPI-1071 PO; -AZIT500T9 PO; +BACL10TA2 PO; -BENA5TAB26 PO; +BUDE10.7; +BUDE10.7 INH; -CHOL50004 PO; +EMPA25TA PO; -FLUT1BLS16 INH; -FURO20TA4 PO; +GABA-1405 PO; -GABA600T13 PO; -HYDR-3965 PO; +HYDR-3972 PO; -LACT1CAP26 PO; +LACT1CAP76 PO; -LANTUS SQ; -METF-438 PO; -POTA8CAP20 PO; +TIRZ10PE
[2024-11-30 05:55] VITALS: TEMP 98
[2024-11-30 06:44] VITALS: BP 115/73; PULSE 71; O2SAT 95
[2024-11-30 07:48] VITALS: RESP 16
[2024-11-30] MEDS: orphenadrine citrate 60mg/2ml inj. IM ONE (07:48)
[2024-11-30] MEDS: HYDROcodone/acetaminophen 10/325mg tab PO ONE (07:48)
[2024-11-30] MEDS ORDERED: HYDR-3965 PO (08:28)
[2024-11-30] MEDS ORDERED: ORPH100T4 PO (08:28)
== END 2024-11-30 09:00 | disposition home or self-care (01) ==
LOC: ER 05:51
DX: M54.2 Cervicalgia (principal); E11.42 Type 2 diabetes mellitus with diabetic polyneuropathy; E78.5 Hyperlipidemia, unspecified; I10 Essential (primary) hypertension; I48.91 Unspecified atrial fibrillation; J44.9 Chronic obstructive pulmonary disease, unspecified; F12.90 Cannabis use, unspecified, uncomplicated
CPT/HCPCS: 72040; 96372; 99283; J2360

== ENCOUNTER 2024-12-28 05:29 | Inpatient (IN) | payer OTHER, BC, MEDICAID ==
[~2024-12-28] VITALS: Ht 175.3 cm; Wt 81.8 kg
[2024-12-28] VITALS (15 sets, daily range): BP systolic 125–144; BP diastolic 75–81; PULSE 67–96; RESP 12–24; TEMP 97.4–97.8; O2SAT 92–98
[~2024-12-28 05:29] MED LIST changes: +ORPH100T4 PO
--- NOTE | 2024-12-28 05:41 | ELECTROCARDIOGRAPH REPORT ---
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 Angie Villar Measurements Intervals [place] Rate: 88 P: 11 UT: 206 QRS: -17 QRSD: 89 T: 32 QT: 377 QTc: 457 Interpretive Statements Sinus rhythm Borderline left axis deviation Abnormal R-wave progression, early transition Electronically Signed On 12-28-2024 19:21:[address] Angie Villar Please click the below link to view image of tracing.
[2024-12-28] MEDS: morphine 4 MG/ML inj SYRINge IV ONE ×2 (06:17→09:12)
--- NOTE | 2024-12-28 06:17 | RADIOLOGY REPORT ---
EXAM: XR Chest, 1 View CLINICAL INDICATION: CP TECHNIQUE: Frontal view of the chest. COMPARISON: DI CHEST,SINGLE VIEW on DOS: 03/10/24, CHEST,SINGLE VIEW on DOS: 07/27/21 FINDINGS: LUNGS AND PLEURAL SPACES: Left basilar atelectasis or pneumonia. No pneumothorax. HEART: Unremarkable. No cardiomegaly. MEDIASTINUM: Unremarkable. Normal mediastinal contour. BONES/JOINTS: Unremarkable. No acute fracture. OTHER FINDINGS: . . . IMPRESSION: Left basilar atelectasis or pneumonia.
[2024-12-28 06:25] LABS: BASOPHILS # (AUTO) 0.1 X10'3 (0-0.2); BASOPHILS % (AUTO) 0.5 % (0-1); EOSINOPHILS # (AUTO) 0.1 X10'3 (0-0.9); EOSINOPHILS % (AUTO) 0.7 % (0-6); HEMOGLOBIN 14.8 g/dl (14.0-17.9); LYMPHOCYTES # (AUTO) 1.6 X10'3 (1.1-4.8); MEAN CORPUSCULAR HEMOGLOBIN 31.6 PG (27.0-31.0); MEAN CORPUSCULAR HGB CONC 33.6 g/dL (33.0-36.5); MEAN CORPUSCULAR VOLUME 94.1 FL (78-98); MONOCYTES # (AUTO) 1.3 X10'3 (0-0.9); MONOCYTES % (AUTO) 6.6 % (2-12); NEUTROPHILS # (AUTO) 16.6 X10'3 (1.8-7.7); NEUTROPHILS % (AUTO) 84.2 % (42-75); PLATELET COUNT 203 X10'3 (140-440); RED BLOOD COUNT 4.67 X10'6 (4.70-6.10); RED CELL DISTRIBUTION WIDTH 13.4 % (11.5-14.5); WHITE BLOOD COUNT 19.7 X10'3 (4.5-11.0)
[2024-12-28] MEDS: methylPREDNISolone sod succ 125mg/2ml vial IV ONE (06:27)
--- NOTE | 2024-12-28 06:35 | Physician Documentation ---
History of Present Illness ~ General Chief Complaint: See Chief Complaint Stated Complaint: ALOC,WEAK Time Seen by MD: 06:01 Primary Medical Doctor: Guevara Whittington DO Mode of Arrival: POV History of Present Illness Initial Comments 74-year-old male presenting with multiple medical problems. The patient's main complaint is that he has had severe shoulder pain that has been ongoing for the past month. He states that the pain is constant and it radiates down his left arm as well as towards his back. He states that any attempt at moving the shoulder causes worsening of the pain. Additionally he states that his lower back has been hurting more often and worse than before over the past month. He endorses frequent falls because he has had severe pain and unsteadiness on his feet as a result. His reports the patient has also been slightly altered mentally over the past couple of days. She states that he has been seeing and saying many things that do not really make much sense. Additionally the patient reports that he has been feeling very short of breath over the past couple of days. This has gradually been worsening as well. He has been coughing some yellow sputum up as well. The patient has a history of COPD and atrial fibrillation for which he is on multiple medications for. reports that the patient recently had some blood work done that indicated that his CEA is elevated. His primary care physician had ordered a CT of the chest abdomen and pelvis to be done to rule out any malignancy. Medication Reconciliation Allergies: Coded Allergies: No Known Allergies (Unverified , 11/30/24) Scheduled Amox Tr/Potassium Clavulanate 875/125 MG (Augmentin 875/125 MG), 1 TAB PO BID Apixaban (Eliquis), 5 MG PO BID, (Reported) Aripiprazole (Aripiprazole), 1 TAB PO DAILY, (Reported) Atorvastatin Calcium (Atorvastatin Calcium), 1 TAB PO DAILY, (Reported) Baclofen (Baclofen), 1 TAB PO TID, (Reported) Budesonide/Glycopyr/Formoterol (Breztri Aerosphere Inhaler), 2 PUFFS INH Q12H, (Reported) Carvedilol (Carvedilol), 1 TAB PO BID, (Reported) Empagliflozin (Jardiance), 1 TAB PO DAILY, (Reported) Fluoxetine Hcl (Fluoxetine Hcl), 1 TAB PO DAILY, (Reported) Gabapentin (Gabapentin), 1 TAB PO TID, (Reported) Lactobacillus Casei/Folic Acid (Restora Rx Capsule), 1 CAP PO DAILY Montelukast Sodium (Montelukast Sodium), 1 TAB PO DAILY, (Reported) Scheduled PRN Hydrocodone Bit/Acetaminophen (Hydrocodon-Acetaminophn 10-325 tablet), 1 TAB PO Q4H PRN for severe pain 7-10 Orphenadrine Citrate (Norflex), 1 TAB PO Q12H PRN PRN for pain Miscellaneous Medications Budesonide/Glycopyr/Formoterol (Breztri Aerosphere Inhaler), (Reported) Tirzepatide (Mounjaro), (Reported) Past Medical History Past Medical History: Peripheral Neuropathy, Atrial Fibrillation, COPD, Acute Kidney Injury, Diabetes, Chronic Back Pain Past Surgical History: noncontributory Patient History: Patient reports no known family medical history. Alcohol Use: Occasionally Drug Use: marijuana Lives In: Home Review of Systems All Other Systems at this time: Reviewed and Negative Physical Exam Physical Exam Vital Signs: Temperature: 99.2, Source: Oral, Heart Rate: 85, Respiratory Rate: 16, BP: 131/88, Pulse Oximetry: 96, Weight: 81.820 Oxygen Flow Rate: 1.0 Physical Exam I have reviewed the triage vitals. CONST: Well developed and well nourished. In mild distress due to pain HENT: Head Atraumatic EYES: Pupils are equal, round and reactive to light. Normal conjunctiva NECK: Limited range of motion of the neck due to pain. There is tenderness to palpation over the cervical midline and left cervical paraspinal musculature. CARDIO: Normal rate and regular rhythm. No murmurs, rubs, or gallops. S1, S2. PULM/CHEST: Patient is on supplemental oxygen. There are bilateral inspiratory and expiratory wheezes auscultated. Decreased air entry bilaterally. ABD: Soft and nontender. Nondistended. Bowel sounds normal. No guarding. : Exam deferred MSK: There is diffuse tenderness to palpation over the left shoulder. Range of motion is significantly limited secondary to pain. Attempt at range of motion passively causes severe pain. NEURO: Alert and oriented to person, place and time. Moving all extremities SKIN: Warm and dry. PSYCH: Normal mood and affect. Good eye contact. Procedures Joint Injection: Site: L shoulder Site was prepared: in a sterile fashion, area prepped w/chloraprep Injected With: lidocaine, other (dexamethasone) Amount (mls): 4 Patient Relief: complete Needle Size (g): 25 Tolerated Procedure Well?: yes, no complications Additional Comment Ultrasound guidance was used Progress Results/Orders Results/Orders Orders - DEBBY SHI MD Ct Head (12/28/24 07:56) Ct Cervical Spine (12/28/24 07:56) Ct Lumbar Spine (12/28/24 07:56) * Rt Notification Q1H (12/28/24 06:42) Ct Upper Extrem(Shoulder/Arm) (12/28/24 07:55) * Rt Notification Q1H (12/28/24 09:19) Ct Chest Abdomen Pelvis Iv Con (12/28/24 10:34) Page Hospitalist (12/28/24 10:09) Fill Out Med Reconciliation (12/28/24 10:09) Completed Orders - DEBBY SHI MD Drug Screen, Urine (12/28/24 06:02) Morphine 4mg/Ml Inj. (Morphine Inj.) (12/28/24 06:15) Methylprednisolone Sod Succ (Solumedrol (12/28/24 06:15) Ct Head (12/28/24 07:56) Ct Cervical Spine (12/28/24 07:56) Ct Lumbar Spine (12/28/24 07:56) Albuterol 2.5mg/3ml Nebule (Proventil 2. (12/28/24 06:45) Azithromycin/Ns 500mg/250ml (Zithromax/N (12/28/24 06:45) Ondansetron Inj. (Zofran 4mg/2ml Vial) (12/28/24 07:15) Troponin (Single) (12/28/24 07:38) Ammonia (12/28/24 07:38) Pt Inr (12/28/24 07:38) PTT (12/28/24 07:38) Ct Upper Extrem(Shoulder/Arm) (12/28/24 07:55) Ondansetron Inj. (Zofran 4mg/2ml Vial) (12/28/24 09:00) Morphine 4mg/Ml Inj. (Morphine Inj.) (12/28/24 09:00) Dexamethasone Inj (Decadron 10mg/Ml Inj) (12/28/24 09:08) Lidocaine 1% W/Preservative (Lidocaine 1 (12/28/24 09:10) Albuterol 2.5mg/3ml Nebule (Proventil 2. (12/28/24 09:20) Ct Chest Abdomen Pelvis Iv Con (12/28/24 10:34) Normal Saline 500ml Iv Soln (Sodium Chlo (12/28/24 10:05) Iohexol 300mg/Ml 100ml Inj. (Omnipaque-3 (12/28/24 10:11) Medications Received in ER Medications (Trade) Dose Ordered Sig/Karl Route PRN Reason Start Time Stop Time Status Last Admin Dose Admin (morphine inj.) 4 mg ONCE ONCE IV 12/28/24 06:15 12/28/24 06:16 DC 12/28/24 06:17 4 MG (SoluMEDROL 125mg inj) 125 mg ONCE ONCE IV 12/28/24 06:15 12/28/24 06:16 DC 12/28/24 06:27 125 MG (Proventil 2.5 MG/3ML nebule) 2.5 mg ONCE ONCE NEB 12/28/24 06:45 12/28/24 06:50 DC 12/28/24 08:18 2.5 MG Azithromycin 250 ml @ 250 mls/hr ONCE ONCE IV 12/28/24 06:45 12/28/24 07:44 DC 12/28/24 07:00 250 MLS/HR (Zofran 4mg/2ml vial) 4 mg ONCE ONCE IV 12/28/24 07:15 12/28/24 07:16 DC 12/28/24 07:16 4 MG (Zofran 4mg/2ml vial) 4 mg ONCE ONCE IV 12/28/24 09:00 12/28/24 09:01 DC 12/28/24 09:11 4 MG (morphine inj.) 4 mg ONCE ONCE IV 12/28/24 09:00 12/28/24 09:01 DC 12/28/24 09:12 4 MG (Decadron 10mg/ ml inj) 10 mg ONCE STAT IM 12/28/24 09:08 12/28/24 09:15 DC 12/28/24 09:58 10 MG (LIDOcaine 1% w/ preservative inj. 20ml vial) 10 mg ONCE ONCE SQ 12/28/24 09:10 12/28/24 09:11 DC 12/28/24 09:58 10 MG (Proventil 2.5 MG/3ML nebule) 2.5 mg ONCE ONCE NEB 12/28/24 09:20 12/28/24 09:22 DC 12/28/24 10:33 2.5 MG Sodium Chloride 500 ml @ 1,000 mls/hr ONCE ONCE IV 12/28/24 10:05 12/28/24 10:34 DC 12/28/24 10:05 1,000 MLS/HR Vital Signs 12/28/24 12/28/24 12/28/24 12/28/24 05:34 05:47 06:17 08:18 Temp 99.2 99.2 Pulse 89 85 96 Resp 17 28 16 24 B/P (MAP) 131/88 131/88 (102) Pulse Ox 96 94 O2 Delivery Nasal Cannula* O2 Flow Rate 1.0 2 FiO2 28 12/28/24 12/28/24 12/28/24 12/28/24 08:26 08:48 08:55 09:12 Pulse 95 93 Resp 20 18 18 24 B/P (MAP) 131/88 (102) Pulse Ox 95 94 O2 Delivery Nasal Cannula* O2 Flow Rate 2 2.0 FiO2 28 12/28/24 12/28/24 12/28/24 12/28/24 10:35 10:42 11:13 11:18 Pulse 94 93 90 Resp 16 16 21 16 B/P (MAP) 135/83 (100) Pulse Ox 92 92 96 O2 Delivery Nasal Cannula* Nasal Cannula* O2 Flow Rate 2 2 2.0 FiO2 Laboratory Tests Test 12/28/24 05:59 12/28/24 07:22 12/28/24 08:03 12/28/24 08:08 White Blood Count 19.7 H Red Blood Count 4.67 L Hemoglobin 14.8 Hematocrit 44.0 Mean Corpuscular Volume 94.1 Mean Corpuscular Hemoglobin 31.6 H Mean Corpuscular Hemoglobin Concent 33.6 Red Cell Distribution Width 13.4 Platelet Count 203 Mean Platelet Volume 8.0 Neutrophils (%) (Auto) 84.2 H Lymphocytes (%) (Auto) 8.0 L Monocytes (%) (Auto) 6.6 Eosinophils (%) (Auto) 0.7 Basophils (%) (Auto) 0.5 Neutrophils # (Auto) 16.6 H Lymphocytes # (Auto) 1.6 Monocytes # (Auto) 1.3 H Eosinophils # (Auto) 0.1 Basophils # (Auto) 0.1 CBC Comment Sodium Level 134 L Potassium Level 4.5 Chloride Level 97 L Carbon Dioxide Level 33.3 H Anion Gap 4 L Blood Urea Nitrogen 16 Creatinine 1.27 H Estimated GFR/1.73 m2 56 BUN/Creatinine Ratio 12.6 Glucose Level 181 H Calcium Level 9.0 Total Bilirubin 0.8 Aspartate Amino Transf (AST/SGOT) 8 L Alanine Aminotransferase (ALT/SGPT) 17 Alkaline Phosphatase 92 Troponin I High Sensitivity 7 4 Pro-B-Type Natriuretic Peptide 397 H Total Protein 7.5 Albumin 3.2 L Globulin 4.3 Albumin/Globulin Ratio 0.7 L Procalcitonin 0.07 Thyroid Stimulating Hormone (TSH) 0.96 Chemistry Comments Salicylates Level 3.2 L Acetaminophen Level < 2.0 L Ethyl Alcohol Level < 10 Coagulation Comments Lactic Acid Level 1.0 Prothrombin Time 11.7 INR International Normalized Ratio 1.2 Activated Partial Thromboplast Time 35 H Ammonia < 10 L Urine Specimen Description Cln catch midstream Urine Color Yellow Urine Clarity Clear Urine pH 6.0 Urine Specific Collins 1.010 Urine Protein 30 H Urine Glucose (UA) >=1000 H Urine Ketones Trace H Urine Occult Blood Trace-intact Urine Nitrite Negative Urine Bilirubin Negative Urine Urobilinogen 0.2 Urine Leukocyte Esterase Negative Urine RBC 0-2 Urine WBC 0-4 Urine Squamous Epithelial Cells Few Urine Bacteria Few Urine Mucus None seen Urine Culture Indicated Not ind Volume Urine Centrifuged 10 ml Urine Comment Urine Opiates Screen Positive Urine Methadone Screen Negative Urine Fentanyl Screen Negative Urine Barbiturates Screen Negative Urine Phencyclidine Screen Negative Urine Amphetamines Screen Negative Urine Benzodiazepines Screen Negative Urine Cocaine Screen Negative Urine Cannabinoids Screen Positive Drug Screen Comment Microbiology Date/Time Source Procedure Growth Status 12/28/24 07:29 Blood Arm Left Blood Culture - Preliminary NEGATIVE (LESS THAN 24 HOURS) Resulted EKG/XRAY/CT/US/VASC/MRI EKG : Additional Comment EKG interpreted by CLAUDIA Shi shows normal sinus rhythm at a rate of 88, normal axis, no DC intervals. No ischemia Chest X-Ray : Interpreted By: both Additional Comments EXAM: XR Chest, 1 View CLINICAL INDICATION: CP TECHNIQUE: Frontal view of the chest. COMPARISON: DI CHEST,SINGLE VIEW on DOS: 03/10/24, CHEST,SINGLE VIEW on DOS: 07/27/21 FINDINGS: LUNGS AND PLEURAL SPACES: Left basilar atelectasis or pneumonia. No pneumothorax. HEART: Unremarkable. No cardiomegaly. MEDIASTINUM: Unremarkable. Normal mediastinal contour. BONES/JOINTS: Unremarkable. No acute fracture. OTHER FINDINGS: . . . IMPRESSION: Left basilar atelectasis or pneumonia. CT : Impression EXAM: CT CT CERVICAL SPINE INDICATION: altered state EXAM DATE: 12/28/2024 07:45 AM COMPARISON: DI CERVICAL SPINE LTD on DOS: 11/30/24, CT CT CERVICAL SPINE on DOS: 03/10/24 TECHNIQUE: Multiple axial CT images of the cervical spine were obtained using bone algorithm. Sagittal and coronal reformatting was done. Bone and soft tissue windows were reviewed. Radiation Dose Information: CT Dose: CTDI volume is 22.0 mGy. Dose-length product is 498 mGy*cm FINDINGS: The cervical alignment is intact. No acute cervical spine fracture is dima ntified. The vertebral body heights are intact. No suspicious osseous lesions are identified. There is multilevel intervertebral disc space narrowing in the cervical spine. No significant spinal stenosis. Multilevel neural foraminal stenosis. There is no prevertebral soft tissue swelling. The lung apices are clear. IMPRESSION: 1. No evidence of acute cervical spine fracture or traumatic malalignment. All CT scans at this medical facility are performed using dose modulation techniques as appropriate to a performed exam including the following: Automated exposure control was utilized; adjustment of the MA and/or KV according to patient size; and use of iterative reconstruction technique. : CT CT HEAD HISTORY: altered state COMPARISON: CT CT HEAD on DOS: 03/10/24 TECHNIQUE: Axial images of the head were obtained and reformatted in coronal and sagittal planes. All CT scans at this medical facility are performed using dose modulation techniques as appropriate to a performed exam including the following: Automated exposure control was utilized; adjustment of the MA and/or KV according to patient size; and use of iterative reconstruction technique. CT Dose: CTDI volume is 58 mGy. Dose-length product is 978 mGy*cm FINDINGS: There is no evidence of acute intracranial hemorrhage, mass, mass effect midline shift. There is no hydrocephalus or extra-axial fluid collection. Hinojosa-white matter differentiation is maintained. The visualized paranasal sinuses and mastoid air cells are clear. The calvarium is intact. IMPRESSION: 1. No acute intracranial process. HS:Y ICAL INDICATION: 74 years old, Male; altered state. TECHNIQUE: CT of the lumbar spine was performed without intravenous contrast. Sagittal and coronal reformatted images are provided. All CT scans at this medical facility are performed using dose modulation techniques as appropriate to a performed exam including the following: Automated exposure control was utilized; adjustment of the MA and/or KV according to patient size; and use of iterative reconstruction technique. COMPARISON: None CT Dose: CTDI volume is 24.1 mGy. Dose-length product is 838 mGy*cm FINDINGS: There is grade 1 anterolisthesis at L4-L5. There is acute appearing L2 compression fracture causing about 10% vertebral body height loss. No osseous retropulsion. Multilevel intervertebral disc space narrowing is noted. Multilevel central spinal canal stenosis. Multilevel neural foraminal stenosis. Multilevel facet arthropathy. The prevertebral soft tissues are unremarkable. Paraspinal muscles are also within normal limits. There is a 6 mm metallic density in between the seminal vesicles and rectum. IMPRESSION: 1. L2 compression fracture which appears acute. There is about 10% vertebral body height loss. No osseous retropulsion. CLINICAL INDICATION: 74 years old, Male; altered state, FALL PAIN LT SHOULDER. TECHNIQUE: Noncontrast CT of the left shoulder was performed. Sagittal and coronal reformatted images are provided. COMPARISON: None CT Dose: CTDI volume is 28.9 mGy. Dose-length product is 102.6 mGy*cm FINDINGS: No fracture or dislocation. Severe glenohumeral joint space narrowing and osteophyte formation. There is glenohumeral joint effusion. The acromioclavicular joint space is narrowed with capsular hypertrophy. Visualized left ribs are intact. Scarring and emphysema in the left upper lobe. IMPRESSION: 1. No acute fracture or dislocation. 2. Severe left glenohumeral joint arthrosis. 3. Scarring and emphysema in the left upper lobe. All CT scans at this medical facility are performed using dose modulation techniques as appropriate to a performed exam including the following: Automated exposure control was utilized; adjustment of the MA and/or KV according to hiram ent size; and use of iterative reconstruction technique. CHEST: Aorta: No aneurysm or dissection. Moderate atherosclerotic calcification. Cardiac: Heart size is within normal limits. Dense coronary artery calcification. Mediastinum/leslie: Small subcentimeter Mediastinal lymph nodes. Lungs: Respiratory motion artifact limits evaluation. Fibrotic changes with reticulation, traction bronchiectasis, mild to moderate cystic change. There are areas of honeycombing. Wall thickening in the lower lobe bronchi. Pulmonary arteries: No gross abnormality. Chest wall: No mass or other abnormality. Bones: No acute fracture or suspicious intraosseous lesions. CT ABDOMEN/PELVIS: Liver: Hepatic steatosis. Biliary: Cholecystectomy. Common bile duct is dilated up to 1.5 cm in diameter, which may be seen after cholecystectomy due to reservoir effect. No obstructing calcified gallstone visualized. Spleen: Unremarkable. Pancreas: Unremarkable. No inflammatory changes, ductal dilatation, or mass identified. Adrenal glands: Unremarkable. No mass. Kidneys: No hydronephrosis. Small subcentimeter low-attenuation lesions in both kidneys are likely small cysts, but too small to characterize. Aorta: Dense atherosclerotic calcification. No abdominal aortic aneurysm. Retroperitoneum: No mass or lymphadenopathy. Bowel/mesentery: Nonspecific nondilated fluid-filled small bowel loops. No small bowel obstruction.Appendix is visualized and appears unremarkable. Scattered colonic diverticula without adjacent inflammatory changes to suggest diverticulitis. Wall thickening of the sigmoid colon is nonspecific, but may be due to sequela of chronic diverticular disease. Pelvic organs: Grossly unremarkable. Bladder: Moderately distended bladder. Abdominal wall: No mass or hernia. Bones: Mild chronic compression deformity of the superior endplate of the L3 vertebral body, appears chronic. Mild anterolisthesis of L5 on S1. Transitional vertebra at the lumbosacral junction is designated a lumbarized S1 for the purposes of numbering on this exam. There is rudimentary disc at S1-S2. IMPRESSION: 1. Fibrotic changes in the lungs as described above, may be seen with usual interstitial pneumonia or fibrotic nonspecific interstitial pneumonia. No suspicious pulmonary nodule or mass. 2. Scattered colonic diverticula without adjacent inflammatory changes to suggest diverticulitis. 3. Areas of wall thickening of the colon are most likely due to chronic diverticular disease. Correlate with clinical findings. 4. Postsurgical changes of prior cholecystectomy. Dilated common bile duct may be seen after cholecystectomy however correlation with clinical findings is needed. If there is clinical concern for common bile duct obstruction, MRCP could be obtained. 5. Nonspecific nondilated fluid-filled small bowel loops. Findings may be seen with ileus or enteritis in the appropriate clinical setting. No small bowel obstruction. 6. Hepatic steatosis. 7. Moderately distended bladder. 8. Additional findings as described above. Medical Decision Making Differential Diagnosis 74-year-old male presenting with left shoulder pain, lower back pain as well as shortness of breath. His workup indicates some diffuse opacities on chest x-ray which could represent possible pneumonia versus pulmonary edema. He does have a history of COPD as well as atrial fibrillation. Patient is very wheezy on exam and was hypoxic. He required O2 by nasal cannula. He was given two rounds of albuterol breathing treatments as well as 125 mg of IV Solu-Medrol with some improvement. Additionally he was given 500 mg of IV azithromycin for any possible underlying pneumonia. Lab workup does indicate an elevated WBC count of 19 making this a possibility. Additionally we did obtain CTs of his lumbar vertebrae which indicated a L2 compression fracture. CT of the left shoulder was done as well due to the severe pain and showed severe left glenohumeral joint arthropathy. CT of the head and cervical spine were unremarkable. For the patient's severe left shoulder pain I did perform a ultrasound-guided left shoulder glenohumeral joint injection with dexamethasone and lidocaine-please see procedure note. This provided instant relief for the patient. He was also given a total of 8 mg of morphine as well as Zofran for symptomatic therapy. I did discuss the case with neurosurgeon Dr. Majano who will consult on the patient regarding his L3 fracture. Regarding his COPD exacerbation and possible pneumonia however he will need to be admitted for further treatment and care to hospitalist service. We did also do a CT of the chest abdomen and pelvis with contrast to rule out any potential malignancy and this was unremarkable. Patient will be admitted to the hospitalist service. Departure Disposition: ADMITTED INPATIENT Admitted to Inpatient Unit: to hospitalist Impression: Primary Impression: COPD exacerbation Additional Impressions: Pneumonia Lumbar compression fracture Arthritis of left shoulder Condition: Guarded Referrals: NO PRIMARY CARE PROVIDER (PCP) Signature Scribe Signature: 1 Attestation: 1 DEBBY SHI MD Dec 28, 2024 06:35
[2024-12-28 06:39] LABS: ALANINE AMINOTRANSFERASE 17 U/L (12-78); ALBUMIN 3.2 G/DL (3.4-5.0); ALBUMIN/GLOBULIN RATIO 0.7 (1.1-1.5); ALKALINE PHOSPHATASE 92 IU/L (46-116); ANION GAP 4 (8-16); ASPARTATE AMINO TRANSFERASE 8 U/L (10-37); BILIRUBIN,TOTAL 0.8 MG/DL (0.1-1.0); BLOOD UREA NITROGEN 16 MG/DL (7-18); BUN/CREATININE RATIO 12.6 (10.0-20.0); CHLORIDE 97 MMOL/L (99-107); CREATININE 1.27 MG/DL (0.60-1.10); GLUCOSE 181 MG/DL (70-104); POTASSIUM 4.5 MMOL/L (3.5-5.1); SODIUM 134 MMOL/L (135-145); TOTAL CARBON DIOXIDE 33.3 MMOL/L (24-32); TOTAL PROTEIN 7.5 G/DL (6.4-8.2); eCRCL 53 ML/MIN; eGFR 56 ML/MIN
[2024-12-28 06:49] LABS: ETHANOL < 10 MG/DL (<10); PRO BRAIN NATRIURETIC PEPTIDE 397 PG/ML (0-125); SALICYLATE 3.2 MG/DL (4.0-20.0); THYROID STIMULATING HORMONE 0.96 ulU/ml (0.34-4.50)
[2024-12-28 06:58] LABS: ACETAMINOPHEN < 2.0 UG/ML (10-30)
[2024-12-28] MEDS: azithromycin/NS 500mg/250ml 250 ML IV ONE (07:00)
[2024-12-28] MEDS: ondansetron/PF 4mg/2ml inj IV ONE ×2 (07:16→09:11)
--- NOTE | 2024-12-28 08:10 | RADIOLOGY REPORT ---
EXAM: CT CT HEAD HISTORY: altered state COMPARISON: CT CT HEAD on DOS: 03/10/24 TECHNIQUE: Axial images of the head were obtained and reformatted in coronal and sagittal planes. All CT scans at this medical facility are performed using dose modulation techniques as appropriate t o a performed exam including the following: Automated exposure control was utilized; adjustment of th e MA and/or KV according to patient size; and use of iterative reconstruction technique. CT Dose: CTDI volume is 58 mGy. Dose-length product is 978 mGy*cm FINDINGS: There is no evidence of acute intracranial hemorrhage, mass, mass effect midline shift. There is no h ydrocephalus or extra-axial fluid collection. Hinojosa-white matter differentiation is maintained. The visualized paranasal sinuses and mastoid air cells are clear. The calvarium is intact. IMPRESSION: 1. No acute intracranial process. HS:Y
--- NOTE | 2024-12-28 08:10 | RADIOLOGY REPORT ---
EXAM: CT CT CERVICAL SPINE INDICATION: altered state EXAM DATE: 12/28/2024 07:45 AM COMPARISON: DI CERVICAL SPINE LTD on DOS: 11/30/24, CT CT CERVICAL SPINE on DOS: 03/10/24 TECHNIQUE: Multiple axial CT images of the cervical spine were obtained using bone algorithm. Sagitta l and coronal reformatting was done. Bone and soft tissue windows were reviewed. Radiation Dose Information: CT Dose: CTDI volume is 22.0 mGy. Dose-length product is 498 mGy*cm FINDINGS: The cervical alignment is intact. No acute cervical spine fracture is identified. The vertebral body heights are intact. No suspicious osseous lesions are identified. There is multilevel intervertebral disc space narrowing in the cervical spine. No significant spinal stenosis. Multilevel neural foraminal stenosis. There is no prevertebral soft tissue swelling. The lung apices are clear. IMPRESSION: 1. No evidence of acute cervical spine fracture or traumatic malalignment. All CT scans at this medical facility are performed using dose modulation techniques as appropriate t o a performed exam including the following: Automated exposure control was utilized; adjustment of th e MA and/or KV according to patient size; and use of iterative reconstruction technique.
--- NOTE | 2024-12-28 08:14 | RADIOLOGY REPORT ---
CLINICAL INDICATION: 74 years old, Male; altered state, FALL PAIN LT SHOULDER. TECHNIQUE: Noncontrast CT of the left shoulder was performed. Sagittal and coronal reformatted images are provided. COMPARISON: None CT Dose: CTDI volume is 28.9 mGy. Dose-length product is 102.6 mGy*cm FINDINGS: No fracture or dislocation. Severe glenohumeral joint space narrowing and osteophyte format ion. There is glenohumeral joint effusion. The acromioclavicular joint space is narrowed with capsul ar hypertrophy. Visualized left ribs are intact. Scarring and emphysema in the left upper lobe. IMPRESSION: 1. No acute fracture or dislocation. 2. Severe left glenohumeral joint arthrosis. 3. Scarring and emphysema in the left upper lobe. All CT scans at this medical facility are performed using dose modulation techniques as appropriate t o a performed exam including the following: Automated exposure control was utilized; adjustment of th e MA and/or KV according to patient size; and use of iterative reconstruction technique.
[2024-12-28] MEDS: albuterol 2.5 MG/3 ML nebule NEB ONE ×2 (08:18→10:33)
--- NOTE | 2024-12-28 08:18 | RADIOLOGY REPORT ---
CLINICAL INDICATION: 74 years old, Male; altered state. TECHNIQUE: CT of the lumbar spine was performed without intravenous contrast. Sagittal and coronal re formatted images are provided. All CT scans at this medical facility are performed using dose modula tion techniques as appropriate to a performed exam including the following: Automated exposure contro l was utilized; adjustment of the MA and/or KV according to patient size; and use of iterative recons truction technique. COMPARISON: None CT Dose: CTDI volume is 24.1 mGy. Dose-length product is 838 mGy*cm FINDINGS: There is grade 1 anterolisthesis at L4-L5. There is acute appearing L2 compression fracture causing a bout 10% vertebral body height loss. No osseous retropulsion. Multilevel intervertebral disc space na rrowing is noted. Multilevel central spinal canal stenosis. Multilevel neural foraminal stenosis. M ultilevel facet arthropathy. The prevertebral soft tissues are unremarkable. Paraspinal muscles are also within normal limits. There is a 6 mm metallic density in between the seminal vesicles and rectum. IMPRESSION: 1. L2 compression fracture which appears acute. There is about 10% vertebral body height loss. No os seous retropulsion.
[2024-12-28 08:24] LABS: BILIRUBIN,URINE NEGATIVE (Neg); CLARITY,URINE CLEAR (Clear); COLOR,URINE YELLOW (Yellow); GLUCOSE, URINE >=1000 mg/dl (Neg); KETONES,URINE TRACE mg/dl (Neg); LEUKOCYTE ESTERASE ,URINE NEGATIVE (Neg); NITRITES, URINE NEGATIVE (Neg); OCCULT BLOOD,URINE TRACE-INTACT (Neg); PROTEIN,URINE 30 mg/dl (Neg); UROBILINOGEN,URINE 0.2 E.U/dL (0.2-1.0)
[2024-12-28 08:34] LABS: APTT 35 SECONDS (22-32); INR 1.2 INR; PROTHROMBIN TIME 11.7 SECONDS (9.0-12.0)
[2024-12-28 08:34] LABS: UA COLLECTION TYPE CLN CATCH MIDSTREAM
[2024-12-28 08:36] LABS: BACTERIA,URINE FEW /HPF (Neg); MUCUS STRANDS NONE SEEN /LPF (Neg); RBC,URINE 0-2 /HPF (0-2); SQUAMOUS EPITHELIAL CELL,UR FEW /LPF (FEW); WBC,URINE 0-4 /HPF (0-4)
[2024-12-28 09:31] LABS: URINE AMPHETAMINE SCREEN NEGATIVE (Neg); URINE BARBITUATE SCREEN NEGATIVE (Neg); URINE BENZODIAZEPINES SCREEN NEGATIVE (Neg); URINE CANNABINOID SCREEN POSITIVE (Neg); URINE COCAINE SCREEN NEGATIVE (Neg); URINE METHADONE SCREEN NEGATIVE (Neg); URINE OPIATE SCREEN POSITIVE (Neg); URINE PHENCYCLIDINE SCREEN NEGATIVE (Neg)
[2024-12-28] MEDS: LIDOcaine 1% (10mg/ml)w/preservative inj. 20ml MDV SQ ONE (09:58)
[2024-12-28] MEDS: dexamethasone sod phosphate 10mg/ml inj IM STA (09:58)
[2024-12-28] MEDS: normal saline 500ml IV soln 500 ML IV ONE (10:05)
[2024-12-28] MEDS ORDERED: iohexol 300mg/ml 100ml inj. ONE (10:11)
--- NOTE | 2024-12-28 11:17 | RADIOLOGY REPORT ---
CLINICAL INFORMATION: Elevated CEA level. TECHNIQUE: Axial CT images of the chest, abdomen, and pelvis were obtained after the uneventful admin istration of 100 mL of Omnipaque 300 IV contrast. Coronal and sagittal reformatted images were obtain ed, reviewed, and stored. All CT scans at this medical facility are performed using dose modulation t echniques as appropriate to a performed exam including the following: Automated exposure control was utilized; adjustment of the MA and/or KV according to patient size; and use of iterative reconstructi on technique. CTDIvol = 22.02, 18.68, 0.07, 0.07 mGy DLP = 1852.66 mGy-cm COMPARISON: CT chest dated 03/10/2024. FINDINGS: CT CHEST: Aorta: No aneurysm or dissection. Moderate atherosclerotic calcification. Cardiac: Heart size is within normal limits. Dense coronary artery calcification. Mediastinum/leslie: Small subcentimeter Mediastinal lymph nodes. Lungs: Respiratory motion artifact limits evaluation. Fibrotic changes with reticulation, traction br onchiectasis, mild to moderate cystic change. There are areas of honeycombing. Wall thickening in the lower lobe bronchi. Pulmonary arteries: No gross abnormality. Chest wall: No mass or other abnormality. Bones: No acute fracture or suspicious intraosseous lesions. CT ABDOMEN/PELVIS: Liver: Hepatic steatosis. Biliary: Cholecystectomy. Common bile duct is dilated up to 1.5 cm in diameter, which may be seen aft er cholecystectomy due to reservoir effect. No obstructing calcified gallstone visualized. Spleen: Unremarkable. Pancreas: Unremarkable. No inflammatory changes, ductal dilatation, or mass identified. Adrenal glands: Unremarkable. No mass. Kidneys: No hydronephrosis. Small subcentimeter low-attenuation lesions in both kidneys are likely sm all cysts, but too small to characterize. Aorta: Dense atherosclerotic calcification. No abdominal aortic aneurysm. Retroperitoneum: No mass or lymphadenopathy. Bowel/mesentery: Nonspecific nondilated fluid-filled small bowel loops. No small bowel obstruction.Ap pendix is visualized and appears unremarkable. Scattered colonic diverticula without adjacent inflam matory changes to suggest diverticulitis. Wall thickening of the sigmoid colon is nonspecific, but ma y be due to sequela of chronic diverticular disease. Pelvic organs: Grossly unremarkable. Bladder: Moderately distended bladder. Abdominal wall: No mass or hernia. Bones: Mild chronic compression deformity of the superior endplate of the L3 vertebral body, appears chronic. Mild anterolisthesis of L5 on S1. Transitional vertebra at the lumbosacral junction is desig nated a lumbarized S1 for the purposes of numbering on this exam. There is rudimentary disc at S1-S2. IMPRESSION: 1. Fibrotic changes in the lungs as described above, may be seen with usual interstitial pneumonia or fibrotic nonspecific interstitial pneumonia. No suspicious pulmonary nodule or mass. 2. Scattered colonic diverticula without adjacent inflammatory changes to suggest diverticulitis. 3. Areas of wall thickening of the colon are most likely due to chronic diverticular disease. Correla te with clinical findings. 4. Postsurgical changes of prior cholecystectomy. Dilated common bile duct may be seen after cholecys tectomy however correlation with clinical findings is needed. If there is clinical concern for common bile duct obstruction, MRCP could be obtained. 5. Nonspecific nondilated fluid-filled small bowel loops. Findings may be seen with ileus or enteriti s in the appropriate clinical setting. No small bowel obstruction. 6. Hepatic steatosis. 7. Moderately distended bladder. 8. Additional findings as described above.
[2024-12-28] MEDS ORDERED: magnesium sulf-water 4G/100mL 100 ML IV PRN (12:15)
[2024-12-28] MEDS ORDERED: morphine 2 MG/ML inj. syringe IV PRN (12:15)
[2024-12-28] MEDS ORDERED: magnesium sulf-water 2g/50mL 50 ML IV PRN (12:15)
[2024-12-28] MEDS ORDERED: HYDROcodone/acetaminophen 5mg/325mg tablet PO PRN (12:15)
[2024-12-28] MEDS ORDERED: acetaminophen 325mg tablet PO PRN ×2 (12:15)
[2024-12-28] MEDS ORDERED: potassium Cl 40MEQ/1/2NS 520ml 520 ML IV PRN (12:15)
[2024-12-28] MEDS ORDERED: potassium Cl 20 mEq SR tablet PO PRN ×2 (12:15)
[2024-12-28] MEDS ORDERED: magnesium Cl slow-release 64mg tablet PO PRN (12:15)
[2024-12-28] MEDS: CefTRIAXone 2gm/D5W 50ml BAG 50 ML IV SCH (13:29)
[2024-12-28] MEDS: morphine 2 MG/ML inj. syringe IV PRN (13:58)
[2024-12-28 15:03] LABS: HEMOGLOBIN A1C 7.6 % (4.5-6.2)
[2024-12-28] MEDS: albuterol 2.5 MG/3 ML nebule NEB SCH (15:46)
[2024-12-28] MEDS ORDERED: glucagon, human recombinant 1mg kit SUBCUT PRN (15:50)
[2024-12-28] MEDS ORDERED: dextrose 50%-water 50ml dispensing syringe IV PRN ×2 (15:50)
[2024-12-28] MEDS ORDERED: DEXTROSE 15 GM of carb/4 tabs (each vial/BOTTLE has 4 tablets) PO PRN ×2 (15:50)
[2024-12-28] MEDS: INSULIN LISPRO 100 UNIT/ML INSULN.PEN MULTI-DOSE SQ SCH (17:29)
[2024-12-28] MEDS: HYDROcodone/acetaminophen 10/325mg tab PO PRN (18:05)
[2024-12-28] MEDS: budesonide 0.5mg/2ml UD nebule IH SCH (19:37)
[2024-12-28] MEDS: methylPREDNISolone sod succ 125mg/2ml vial IV SCH (20:49)
[2024-12-28] MEDS: heparin, porcine 5000 units/ml vial SQ SCH (20:51)
[2024-12-28] MEDS: carVEDilol 12.5mg tablet PO SCH (20:52)
[2024-12-29] VITALS (18 sets, daily range): BP systolic 108–168; BP diastolic 73–93; PULSE 67–91; RESP 13–20; TEMP 97.1–98.2; O2SAT 90–97
[2024-12-29 05:49] LABS: BASOPHILS % (AUTO) 0.1 % (0-1); EOSINOPHILS % (AUTO) 0 % (0-6); HEMATOCRIT 41.3 % (42.0-52.0); HEMOGLOBIN 14.2 g/dl (14.0-17.9); LYMPHOCYTES # (AUTO) 0.9 X10'3 (1.1-4.8); MEAN CORPUSCULAR HEMOGLOBIN 31.8 PG (27.0-31.0); MEAN CORPUSCULAR HGB CONC 34.3 g/dL (33.0-36.5); MEAN CORPUSCULAR VOLUME 92.7 FL (78-98); MEAN PLATELET VOLUME 7.8 FL (7.4-10.4); MONOCYTES # (AUTO) 0.4 X10'3 (0-0.9); MONOCYTES % (AUTO) 2.6 % (2-12); NEUTROPHILS # (AUTO) 14.2 X10'3 (1.8-7.7); NEUTROPHILS % (AUTO) 91.3 % (42-75); PLATELET COUNT 223 X10'3 (140-440); RED BLOOD COUNT 4.46 X10'6 (4.70-6.10); WHITE BLOOD COUNT 15.5 X10'3 (4.5-11.0)
[2024-12-29 06:04] LABS: ALANINE AMINOTRANSFERASE 12 U/L (12-78); ALBUMIN 2.8 G/DL (3.4-5.0); ALBUMIN/GLOBULIN RATIO 0.6 (1.1-1.5); ALKALINE PHOSPHATASE 88 IU/L (46-116); ANION GAP 10 (8-16); ASPARTATE AMINO TRANSFERASE 9 U/L (10-37); BILIRUBIN,TOTAL 0.4 MG/DL (0.1-1.0); BLOOD UREA NITROGEN 23 MG/DL (7-18); BUN/CREATININE RATIO 22.3 (10.0-20.0); CALCIUM 9.1 MG/DL (8.5-10.1); CHLORIDE 100 MMOL/L (99-107); CREATININE 1.03 MG/DL (0.60-1.10); GLUCOSE 201 MG/DL (70-104); POTASSIUM 4.2 MMOL/L (3.5-5.1); SODIUM 135 MMOL/L (135-145); TOTAL CARBON DIOXIDE 25.5 MMOL/L (24-32); TOTAL PROTEIN 7.2 G/DL (6.4-8.2); eCRCL 65 ML/MIN; eGFR 71 ML/MIN
[2024-12-29] MEDS: azithromycin/NS 500mg/250ml 250 ML IV SCH (08:19)
[2024-12-29] MEDS: FLUoxetine 20mg capsule PO SCH (08:29)
[2024-12-29] MEDS: atorvastatin 10mg tablet PO SCH (08:29)
[2024-12-29] MEDS: EMPAGLIFLOZIN 10 MG TABLET PO SCH (08:29)
[2024-12-29] MEDS: montelukast 10mg tablet PO SCH (08:29)
[2024-12-29] MEDS: lactobacillus rhamnosus 10,000 MMU CELLS/CAPSULE PO SCH (08:30)
[2024-12-29] MEDS: ondansetron/PF 4mg/2ml inj IV PRN (09:17)
[2024-12-29] MEDS: diazepam inj 5 MG/ML inj. IV ONE (16:59)
--- NOTE | 2024-12-29 18:47 | RADIOLOGY REPORT ---
EXAM: MR MRI LUMBAR SPINE CLINICAL HISTORY: L2 compression fracture COMPARISON: CT CT LUMBAR SPINE on DOS: 12/28/24 TECHNIQUE: MRI imaging of the lumbar was performed on a MRI imaging system without intravenous contrast. FINDINGS: 6 vev-zrt-pvjzguq lumbar-type vertebrae for the purpose of the study, the 1st ohs-dwr-mvuwbfk lumbar- type vertebrae will be considered as L1 with the 6th oro-tvh-ccfikfy lumbar-type vertebral a lumbaral ized S1. There is a disc space between S1 and S2. Grade 1 anterolisthesis of L5 on S1. Chronic superior L3 endplate compression fracture with superior L3 endplate degenerative marrow changes. L3 superior and inferior endplate schmorl nodes. The conus terminates at the level of the mid vertebral body of L1 with no abnormal cord signal. T12-L1: Mild posterior disc bulge without significant spinal canal or neural foramina stenosis. L1-L2: Posterior disc bulge causing mild spinal canal stenosis with mild bilateral neural foramina st enosis. L2-L3: Minimal posterior disc bulge causing mild spinal canal stenosis with juak-en-jtqipsoj right-si ded neural foramina stenosis. L3-L4: Mild posterior disc bulge with minimal and dorsal epidural lipomatosis causing moderate spinal canal stenosis with moderate left lateral recess narrowing. Moderate left with mkuz-uh-sjgupxkq righ t-sided neural foramina stenosis. L4-L5: Mild posterior disc bulge with minimal ligamentum flavum hypertrophy and dorsal epidural lipom atosis causing moderate to severe spinal canal stenosis with severe bilateral lateral recess narrowin g. Moderate to severe bilateral neural foramina stenosis. L5-S1: Posterior disc bulge with ligamentum flavum hypertrophy causing moderate spinal canal stenosis with severe bilateral lateral recess narrowing. Severe bilateral neural foramina stenosis. S1-S2: No significant spinal canal or neural foramina stenosis. Paraspinal muscles unremarkable. ligamentum flavum hypertrophy IMPRESSION: Chronic superior endplate compression fracture of L3 with minimal loss of superior vertebral body hei ght. Multilevel Jrif-fq-udgouweu degenerative changes of the lumbar spine as detailed above. Moderate spinal canal stenosis at L3-L4 and L5-S1 with moderate to severe spinal canal stenosis and s evere bilateral lateral recess narrowing at L4-L5. Moderate left-sided neural foramina stenosis at L3-L4 with moderate to severe bilateral neural forami na stenosis at L4-L5 and severe bilateral neural foramina stenosis at L5-S1.
--- NOTE | 2024-12-29 19:02 | HISTORY AND PHYSICAL ---
History & Physical Providers to ~ history and physical for December 28, 2024 History of Present Illness Reason for Admit\\Complaint: Breathing is getting worse and patient has ALOC History of Present Illness Patient was seen in presence of his who was concerned about patient's altered level of consciousness and hallucination and His breathing was also getting worse. When I evaluated the patient patient was not confused in he answered all the questions appropriately. He does smokes cannabis on regular basis and was brought in ER due to worsening of his breathing. He admitted that he drinks alcohol couple of beers everyday. Patient denied any chest pain no swelling over the ankles or no irregular heart rate. As per ER physician's note" 74-year-old male presenting with multiple medical problems. The patient's main complaint is that he has had severe shoulder pain that has been ongoing for the past month. He states that the pain is constant and it radiates down his left arm as well as towards his back. He states that any attempt at moving the shoulder causes worsening of the pain. Additionally he states that his lower back has been hurting more often and worse than before over the past month. He endorses frequent falls because he has had severe pain and unsteadiness on his feet as a result. His reports the patient has also been slightly altered mentally over the past couple of days. She states that he has been seeing and saying many things that do not really make much sense. Additionally the patient reports that he has been feeling very short of breath over the past couple of days. This has gradually been worsening as well. He has been coughing some yellow sputum up as well. The patient has a history of COPD and atrial fibrillation for which he is on multiple medications for. Patient follows with David Mckee in outpatient setting. reports that the patient recently had some blood work done that indicated that his CEA is elevated. His primary care physician had ordered a CT of the chest abdomen and pelvis to be done to rule out any malignancy." Allergies: Coded Allergies: No Known Allergies (Unverified , 11/30/24) Home Medications Home Medications Active Norflex (Orphenadrine Citrate) 100 Mg Tablet.sa 1 Tab PO Q12H PRN PRN Hydrocodon-Acetaminophn 10-325 tablet (Acetaminophen/Hydrocodone Bitart) 10mg- 325mg Tablet 1 Tab PO Q4H PRN Restora Rx Capsule (Lactobacillus Casei/Folic Acid) 60 Mg (200 Billion Cell)- 1.25 Mg Capsule 1 Cap PO DAILY 30 Days Augmentin 875/125 MG (Amoxicillin/Clavulanate Potassium) 875 Mg-125 Mg Tablet 1 Tab PO BID Reported Breztri Aerosphere Inhaler (Budesonide/Glycopyr/Formoterol) 160 Mcg-9 Mcg-4.8 Mcg/Actuation Hfa.aer.ad 2 Puffs INH Q12H Breztri Aerosphere Inhaler (Budesonide/Glycopyr/Formoterol) 160 Mcg-9 Mcg-4.8 Mcg/Actuation Hfa.aer.ad Eliquis (Apixaban) 5 Mg Tablet 5 Mg PO BID Baclofen 10 Mg Tablet 1 Tab PO TID Jardiance (Empagliflozin) 25 Mg Tablet 1 Tab PO DAILY Mounjaro (Tirzepatide) 10 Mg/0.5 Ml Pen.injctr Montelukast Sodium 10 Mg Tablet 1 Tab PO DAILY Gabapentin 600 Mg Tablet 1 Tab PO TID Atorvastatin Calcium 10 Mg Tablet 1 Tab PO DAILY 30 Days Aripiprazole 2 Mg Tablet 1 Tab PO DAILY Fluoxetine Hcl 40 Mg Capsule 1 Tab PO DAILY Carvedilol 12.5 Mg Tablet 1 Tab PO BID Past Medical History Past Medical History Peripheral Neuropathy, Atrial Fibrillation, COPD, Acute Kidney Injury, Diabetes, Chronic Back Pain Past Surgical History Surgical History Comment noncontributory Family History Family History: Patient reports no known family medical history. Past Social History Social History Comment Patient does not use tobacco but he smokes cannabis and has 2nd and exposure from his too. Patient does drink alcohol on regular basis denied use of any other recreational drugs besides cannabis. Patient is retired currently does not work. He is able to ambulate ROS [facility] Review of system as mentioned above in HPI rest of the review of system unremarkable Exam Vitals: Vital Signs Date Time Temp Pulse Resp B/P (MAP) Pulse Ox O2 Delivery O2 Flow Rate FiO2 12/29/24 15:00 97.3 91 16 158/82 (107) 95 Room Air 12/29/24 14:37 0.0 12/29/24 14:32 21 General: General-patient not in any acute distress, alert awake chronically ill-appearing/age-appropriate/looks comfortable, not lethargic HEENT-atraumatic normocephalic, neck supple without elevated JVD, no thyromegaly or carotid bruit. No lymphadenopathy bilaterally. Eyes-no icterus or pallor seen in eyes Chest-mild wheezing and decreased breath sounds present to auscultation bilaterally, breathing nonlabored no tachypnea, no crackles. Heart-S1-S2 normal, regular heart rate no murmur Abdomen bowel sounds positive on auscultation, soft nondistended nontender no guarding, no rigidity Skin no active skin rash, Left side visible lump over cervical collar bone Neurology-grossly intact, nonfocal alert awake Extremity- no pedal edema able to move all 4 extremities Psychiatry - patient is not confused or agitated cooperated well during physical examination Diagnostic Data Last Recorded Lab Results: 12/29/24 0522 12/29/24 0532 Diagnostic Data: Laboratory Tests Test 12/28/24 08:03 Prothrombin Time 11.7 SECONDS (9.0-12.0) INR International Normalized Ratio 1.2 INR Activated Partial Thromboplast Time 35 SECONDS (22-32) H Coagulation Comments Advance Care Planning Advanced Care plannin - 30 Minutes Additional Plan # Patient was admitted for acute COPD exacerbation we will continue with the nebulizer steroids and antibiotic treatment. Patient's all medications reviewed and discussed # Patient's smokes cannabis patient is strongly advised to stop cannabis and risks explained # For type 2 diabetes patient is started on hypo and hyperglycemic protocol, hemoglobin A1c 7.6 # Altered level of consciousness-resolved, Patient is taking multiple medication which can make him confused and dizzy. Home medication reconciliation we will be done once updated in electronic record system. Side effects of medication discussed with patient and his in visit. # Left side visible lump over cervical collar bone- will monitor # Code status discussed with the patient patient wishes to stay full code. All labs diagnostic workup discussed in detail in visit with patient and his . Patient will bring recent labs done in outpatient setting for comparison. Patient's current condition is guarded we will continue to follow patient in a.m. Date of Service: Dec 28, 2024 Billing Provider: ABDELRAHMAN RAE MD Common Visit Codes: [id number] INP/OBS CARE (HIGH) Secondary Visit Codes: 29295-[id number] CARE PLAN 30 MINUTES ABDELRAHMAN RAE MD Dec 29, 2024 19:02
--- NOTE | 2024-12-29 19:14 | PROGRESS NOTE ---
Daily Progress Note Providers to CC ~ Antibiotic Timeout Antibiotic Ordered?: Yes Subjective Patient was seen in his room he was alert awake oriented cooperated well during physical examination. I reviewed patient's labs from PCP. WBC 12.1, CEA 10.2 on December 17, 2024, on November 16, 2024 WBC 13.2 PSA 1.3 rest of the labs unremarkable. Patient needs physical therapy evaluation. Nursing staff requesting if patient can use CBD in the hospital Objective Vital Signs Date Time Temp Pulse Resp B/P (MAP) Pulse Ox O2 Delivery O2 Flow Rate FiO2 12/29/24 15:00 97.3 91 16 158/82 (107) 95 Room Air 12/29/24 14:37 0.0 12/29/24 14:32 21 lumbar MRI IMPRESSION: Chronic superior endplate compression fracture of L3 with minimal loss of superior vertebral body height. Multilevel Egvn-iw-ffcwhlmx degenerative changes of the lumbar spine as detailed above. Moderate spinal canal stenosis at L3-L4 and L5-S1 with moderate to severe spinal canal stenosis and severe bilateral lateral recess narrowing at L4-L5. Moderate left-sided neural foramina stenosis at L3-L4 with moderate to severe bilateral neural foramina stenosis at L4-L5 and severe bilateral neural foramina stenosis at L5-S1. Result Diagram: 12/29/24 0512/29/24 0532 General-patient not in any acute distress, alert awake chronically ill- appearing, age-appropriate, looks comfortable, not lethargic HEENT-atraumatic normocephalic, neck supple without elevated JVD, no thyromegaly or carotid bruit. No lymphadenopathy bilaterally. Eyes-no icterus or pallor seen in eyes Chest-mild wheezing and decreased breath sounds present to auscultation bilaterally, breathing nonlabored no tachypnea, no crackles. Heart-S1-S2 normal, regular heart rate no murmur Abdomen bowel sounds positive on auscultation, soft nondistended nontender no guarding, no rigidity Skin no active skin rash, Left side visible lump over cervical collar bone Neurology-grossly intact, nonfocal alert awake Extremity- no pedal edema able to move all 4 extremities Psychiatry - patient is not confused or agitated cooperated well during physical examination Coagulation Studies Laboratory Tests Test 12/28/24 08:03 Prothrombin Time 11.7 SECONDS (9.0-12.0) INR International Normalized Ratio 1.2 INR Activated Partial Thromboplast Time 35 SECONDS (22-32) H Coagulation Comments Problem\Assessment\Plan # Patient was admitted for acute COPD exacerbation we will continue with the nebulizer steroids and antibiotic treatment. Patient's all medications reviewed and discussed # Patient's smokes cannabis patient is strongly advised to stop cannabis and risks explained # For type 2 diabetes patient is started on hypo and hyperglycemic protocol, hemoglobin A1c 7.6 # Altered level of consciousness-resolved, Patient is taking multiple medication which can make him confused and dizzy. Home medication reconciliation we will be done once updated in electronic record system. Side effects of medication discussed with patient and his in visit. # Left side visible lump over cervical collar bone- due to Severe left glenohumeral joint arthrosis. # Code status discussed with the patient patient wishes to stay full code. Patient's current condition is guarded we will continue to follow patient in a.m.. He needs physical therapy evaluation in a.m.. Please avoid any CBD product while patient is hospitalized. Date of Service: Dec 29, 2024 Billing Provider: ABDELRAHMAN RAE MD Common Visit Codes: [id number] INP/OBS CARE(HIGH) ABDELRAHMAN RAE MD Dec 29, 2024 19:14
[2024-12-30] VITALS (13 sets, daily range): BP systolic 114–164; BP diastolic 78–94; PULSE 67–85; RESP 13–21; TEMP 96.7–97.9; O2SAT 93–97
[2024-12-30 06:47] LABS: BASOPHILS % (AUTO) 0.1 % (0-1); EOSINOPHILS % (AUTO) 0 % (0-6); HEMATOCRIT 46.2 % (42.0-52.0); HEMOGLOBIN 15.6 g/dl (14.0-17.9); LYMPHOCYTES # (AUTO) 0.9 X10'3 (1.1-4.8); LYMPHOCYTES % (AUTO) 5.4 % (21-51); MEAN CORPUSCULAR HEMOGLOBIN 31.4 PG (27.0-31.0); MEAN CORPUSCULAR HGB CONC 33.7 g/dL (33.0-36.5); MEAN CORPUSCULAR VOLUME 93.2 FL (78-98); MEAN PLATELET VOLUME 7.8 FL (7.4-10.4); MONOCYTES # (AUTO) 0.7 X10'3 (0-0.9); MONOCYTES % (AUTO) 4.3 % (2-12); NEUTROPHILS # (AUTO) 14.5 X10'3 (1.8-7.7); NEUTROPHILS % (AUTO) 90.2 % (42-75); PLATELET COUNT 288 X10'3 (140-440); RED BLOOD COUNT 4.96 X10'6 (4.70-6.10); RED CELL DISTRIBUTION WIDTH 13.1 % (11.5-14.5); WHITE BLOOD COUNT 16.1 X10'3 (4.5-11.0)
[2024-12-30 07:09] LABS: ALANINE AMINOTRANSFERASE 17 U/L (12-78); ALBUMIN 2.9 G/DL (3.4-5.0); ALBUMIN/GLOBULIN RATIO 0.6 (1.1-1.5); ALKALINE PHOSPHATASE 86 IU/L (46-116); ANION GAP 9 (8-16); ASPARTATE AMINO TRANSFERASE 13 U/L (10-37); BILIRUBIN,TOTAL 0.4 MG/DL (0.1-1.0); BLOOD UREA NITROGEN 27 MG/DL (7-18); BUN/CREATININE RATIO 31.8 (10.0-20.0); CALCIUM 9.3 MG/DL (8.5-10.1); CHLORIDE 100 MMOL/L (99-107); CREATININE 0.85 MG/DL (0.60-1.10); GLUCOSE 207 MG/DL (70-104); POTASSIUM 4.6 MMOL/L (3.5-5.1); SODIUM 135 MMOL/L (135-145); TOTAL CARBON DIOXIDE 25.9 MMOL/L (24-32); TOTAL PROTEIN 7.5 G/DL (6.4-8.2); eCRCL 79 ML/MIN; eGFR 89 ML/MIN
[2024-12-30] MEDS: losartan 50mg tablet PO ONE (12:10)
[2024-12-30] MEDS ORDERED: PRED10TA23 PO (15:33)
[2024-12-30] MEDS ORDERED: SITA50TA PO (15:33)
[2024-12-30] MEDS ORDERED: LEVO750T68 PO (15:33)
[2024-12-30] MEDS ORDERED: INSU100I8 SQ (15:33)
[2024-12-30] MEDS ORDERED: METF-1203 PO (15:33)
[2024-12-30] MEDS ORDERED: ALBU18HF2 INH (15:33)
[2024-12-30] MEDS ORDERED: LOSA50TA64 PO (15:33)
--- NOTE | 2024-12-30 15:46 | DISCHARGE SUMMARY ---
Discharge Summary Providers to CC ~ Discharge Summary Admission Diagnosis: COPD excerbation, acute hypoxic respiratory failure, EUGENIO, CAP Hospital Course DATE OF ADMISSION: 12/28/24 DATE OF DISCHARGE: 12/30/24 Discharge Diagnosis\\Comment: Acute hypoxic respiratory failure- POA Acute COPD exacerbation Sepsis 2/2 PNA- POA Community-acquired pneumonia- POA Acute metabolic encephalopathy 2/2 above- POA Prerenal EUGENIO 2/2 vasomotor nephropathy- POA NIDDM HTN Multi level degenerative disc disease Chronic compression fracture Generalized weakness Mechanical fall Operations\\Procedures: None Consultants: None Complications: None Condition on DC: Stable New Medications: Albuterol Sulfate (Ventolin Hfa) 90 Mcg Hfa.aer.ad 2 PUFFS INH Q4HPRN PRN for wheezing for 30 Days, #18 GM 0 Refills Insulin Lispro (Humalog) 100 Unit/Ml Insuln.pen 1 UNITS SQ TIDAC for 14 Days, #2 ML SLIDING SCALE, BEFORE MEALTIME INSULIN Less than 150: 0 units 150-199: 2 units 200-249: 4 units 250-299: 7 units 300-349: 10 units 350-400: 13 units Greater than 400: CALL Levofloxacin (Levofloxacin) 750 Mg Tablet 750 MG PO DAILY for 5 Days, #5 TAB Metformin HCl (Metformin HCl) 500 Mg Tablet 1 TAB PO Q12H for 30 Days, #60 TAB Prednisone (Prednisone) 10 Mg Tablet 0 PO DAILY, #42 TAB Take 4 tabs daily x4 days, then 3 daily x4 days 2 daily x4 days 1 daily x4 days 1/2 daily x4 days then STOP Sitagliptin Phosphate (Januvia) 50 Mg Tablet 1 TAB PO DAILY for 90 Days, #90 TAB 0 Refills Losartan Potassium (Losartan Potassium) 50 Mg Tablet 50 MG PO DAILY for 90 Days, #90 TAB Continued Medications: Apixaban (Eliquis) 5 Mg Tablet 5 MG PO BID, TAB Aripiprazole (Aripiprazole) 2 Mg Tablet 1 TAB PO DAILY Atorvastatin Calcium (Atorvastatin Calcium) 10 Mg Tablet 1 TAB PO DAILY for 30 Days, #30 TAB Baclofen (Baclofen) 10 Mg Tablet 1 TAB PO TID Budesonide/Glycopyr/Formoterol (Breztri Aerosphere Inhaler) 160 Mcg-9 Mcg-4.8 Mcg/Actuation Hfa.aer.ad Budesonide/Glycopyr/Formoterol (Breztri Aerosphere Inhaler) 160 Mcg-9 Mcg-4.8 Mcg/Actuation Hfa.aer.ad 2 PUFFS INH Q12H, GM 0 Refills Carvedilol (Carvedilol) 12.5 Mg Tablet 1 TAB PO BID Empagliflozin (Jardiance) 25 Mg Tablet 1 TAB PO DAILY Fluoxetine Hcl (Fluoxetine Hcl) 40 Mg Capsule 1 TAB PO DAILY Gabapentin (Gabapentin) 600 Mg Tablet 1 TAB PO TID Hydrocodone Bit/Acetaminophen (Hydrocodon-Acetaminophn 10-325 tablet) 10mg- 325mg Tablet 1 TAB PO Q4H PRN for severe pain 7-10, #14 TAB Lactobacillus Casei/Folic Acid (Restora Rx Capsule) 60 Mg (200 Billion Cell)- 1.25 Mg Capsule 1 CAP PO DAILY for 30 Days, #30 CAP 0 Refills Montelukast Sodium (Montelukast Sodium) 10 Mg Tablet 1 TAB PO DAILY Orphenadrine Citrate (Norflex) 100 Mg Tablet.sa 1 TAB PO Q12H PRN PRN for pain, #20 TAB 0 Refills Tirzepatide (Mounjaro) 10 Mg/0.5 Ml Pen.injctr Discontinued Medications: Amox Tr/Potassium Clavulanate 875/125 MG (Augmentin 875/125 MG) 875 Mg-125 Mg Tablet 1 TAB PO BID, #14 TAB Discharge Summary: History of Present Illness From H&P: "Patient was seen in presence of his who was concerned about patient's altered level of consciousness and hallucination and His breathing was also getting worse. When I evaluated the patient patient was not confused in he answered all the questions appropriately. He does smokes cannabis on regular basis and was brought in ER due to worsening of his breathing. He admitted that he drinks alcohol couple of beers everyday. Patient denied any chest pain no swelling over the ankles or no irregular heart rate. As per ER physician's note" 74-year-old male presenting with multiple medical problems. The patient's main complaint is that he has had severe shoulder pain that has been ongoing for the past month. He states that the pain is constant and it radiates down his left arm as well as towards his back. He states that any attempt at moving the shoulder causes worsening of the pain. Additionally he states that his lower back has been hurting more often and worse than before over the past month. He endorses frequent falls because he has had severe pain and unsteadiness on his feet as a result. His reports the patient has also been slightly altered mentally over the past couple of days. She states that he has been seeing and saying many things that do not really make much sense. Additionally the patient reports that he has been feeling very short of breath over the past couple of days. This has gradually been worsening as well. He has been coughing some yellow sputum up as well. The patient has a history of COPD and atrial fibrillation for which he is on multiple medications for. Patient follows with David Mckee in outpatient setting. reports that the patient recently had some blood work done that indicated that his CEA is elevated. His primary care physician had ordered a CT of the chest abdomen and pelvis to be done to rule out any malignancy." Hospital Course Diagnostic findings were notable for normal renal function, findings consistent with COPD exacerbation, CT indicating pneumonia, chest x-ray indicating pneumonia, hypoxia requiring supplemental oxygen, MRI lumbar spine indicating chronic compression fracture of L3 and multilevel degenerative disease and stenosis. Negative findings were negative head CT, negative C-spine CT, normal lactic acid, negative procal. Patient was treated with empirical antibiotics, bronchodilators, steroid, supplemental oxygen, intravenous fluids. Patient did not experience further complications throughout the entire hospital stay and made a good recovery. Patient was evaluated by physical therapy service and was cleared for discharge with home health. Patient was seen and examined on the day of discharge. On day of discharge, vss, on room air, labs unremarkable. An elevated white count likely secondary to demargination from steroid. All labs, diagnostic workups, discharge plan discussed with patient in details during visit before discharge. All questions and concerns answered to the best of my professional knowledge. Patient is to be discharged with HH and to follow-up with PCP within 2 weeks. Physical Exam General: Generalized weakness, A&Ox 3, NAD HEENT: Normocephalic, PERRLA Neck: Supple, trachea midline, no JVD Chest: Clear to auscultation bilaterally Cardiovascular: RRR, S1&S2 GI: Soft and nontender Extremities: No cyanosis/clubbing/or edema TAX CLERK: CN II-XII intact, no focal deficits Musculoskeletal: No paraspinal muscle tenderness, no muscle spasm Skin: Warm and intact *Problems/Diagnosis: (1) COPD exacerbation Status: Acute Total Time Spent on D/C: > 30 Minutes Date of Service: December 30, 2024 Billing Provider: PAUL HAYWARD Common Visit Codes: 25464-YBE/OBS DISCH DAY >30min PAUL HAYWARD December 30, 2024 15:46
[2024-12-30] MEDS ORDERED: HYDR-3965 PO (17:03)
[2024-12-31] MEDS ORDERED: losartan 50mg tablet PO SCH (08:00)
== END 2024-12-30 18:30 | disposition home health service (06) | DRG 871 ==
LOC: ER 05:29 → ED HOLD 12:20 → PCU 3S 15:13
PROVIDERS: ADMIT Internal Medicine; ATTEND Internal Medicine
PROC: 3E0U33Z Introduction of Anti-inflammatory into Joints, Percutaneous Approach (ICD-10-PCS; principal; 2024-12-28)
PROC: BW251ZZ Computerized Tomography (CT Scan) of Chest, Abdomen and Pelvis using Low Osmolar Contrast (ICD-10-PCS; 2024-12-28)
DX: A41.9 Sepsis, unspecified organism (principal); G93.41 Metabolic encephalopathy; J96.01 Acute respiratory failure with hypoxia; N17.0 Acute kidney failure with tubular necrosis; J44.1 Chronic obstructive pulmonary disease with (acute) exacerbation; M48.56XA Collapsed vertebra, not elsewhere classified, lumbar region, initial encounter for fracture; I10 Essential (primary) hypertension; I48.91 Unspecified atrial fibrillation; E11.42 Type 2 diabetes mellitus with diabetic polyneuropathy; J43.9 Emphysema, unspecified; M19.012 Primary osteoarthritis, left shoulder; Z79.01 Long term (current) use of anticoagulants; Z79.899 Other long term (current) drug therapy; Z90.49 Acquired absence of other specified parts of digestive tract
CPT/HCPCS: 36415; 70450; 71045; 71260; 72125; 72131; 72148; 73200; 74177; 80053; 80305; 80320; 80329; 81001; 82140; 82948; 83036; 83605; 83880; 84145; 84443; 84484; 85025; 85610; 85730; 87040; 87081; 93005; 94640; 94760; 96361; 96365; 96372; 96375; 96376; 97116; 97161; 97530; 99285; G0378; J0456; J0696; J1100; J1644; J1815; J2270; J2405; J2919; J3360; J3490; J7030; J7040; Q9967

== ENCOUNTER 2025-05-01 06:16 | Emergency (ER) | payer OTHER, BC, MEDICAID ==
[~2025-05-01] VITALS: Ht 175.3 cm; Wt 81.8 kg
[~2025-05-01 06:16] MED LIST changes: +ALBU18HF2 INH; -AMOX-580 PO; -ATOR10TA70 PO; +ATOR20TA66 PO; -BACL10TA2 PO; -BUDE10.7; -BUDE10.7 INH; -CARV12.545 PO; +CARV3.1289 PO; -HYDR-3972 PO; +HYDR28CR14 TP; +INSU100I8 SQ; -LACT1CAP76 PO; +LOSA50TA64 PO; -MONT-40 PO; -ORPH100T4 PO; -TIRZ10PE
[2025-05-01 06:22] VITALS: TEMP 96.7
--- NOTE | 2025-05-01 06:37 | ELECTROCARDIOGRAPH REPORT ---
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
--- NOTE | 2025-05-01 06:46 | Physician Documentation ---
History of Present Illness ~ Chief Complaint: Weakness Stated Complaint: ALTERED Time Seen by MD: 06:29 OK to notify your PCP?: Yes Primary Medical Doctor: Guevara Whittington DO Source: patient, family Mode of Arrival: POV Exam Limitations: no limitations HPI Patient with a history of hypertension, diabetes, AFib, long COVID on 3 L of oxygen in with weakness over the past couple of days. He also seems a little altered per family. More lethargic. He does seem to be oriented in the ER. He complains of some shortness of breath and left shoulder pain for the last couple of days. does state that he has had chronic left shoulder pain and has [id number] and is currently seeing orthopedics for this. No history of heart attack or stroke. Quit smoking a few years ago but was smoking a pack per day. Has been on oxygen since getting COVID 3 or 4 years ago. He has had a very mild cough over the past few days. He did have a fall a couple of days ago and his came home to find an abrasion on his forehead. He is on Eliquis for AFib. Medication Reconciliation Allergies: Coded Allergies: No Known Allergies (Unverified , 05/01/25) Scheduled Apixaban (Eliquis), 5 MG PO BID, (Reported) Aripiprazole (Aripiprazole), 1 TAB PO DAILY, (Reported) Atorvastatin Calcium* (Lipitor*), 1 TAB PO DAILY, (Reported) Carvedilol (Carvedilol), 1 TAB PO Q12H, (Reported) Empagliflozin (Jardiance), 1 TAB PO DAILY, (Reported) Fluoxetine Hcl (Fluoxetine Hcl), 1 TAB PO DAILY, (Reported) Furosemide* (Lasix*), 1 TAB PO BID, (Reported) Gabapentin (Gabapentin), 1 TAB PO TID, (Reported) Insulin Lispro (Humalog), 1 UNITS SQ TIDAC Losartan Potassium (Losartan Potassium), 50 MG PO DAILY Losartan* (Cozaar*), 1 TAB PO DAILY, (Reported) Metformin Hcl (Metformin Hcl), 1 TAB PO Q12H, (Reported) Mometasone Furoate (Asmanex Hfa), 2 PUFFS INH Q12H, (Reported) Pantoprazole Sodium (PROTONIX tablet), 1 TAB PO DAILY, (Reported) Scheduled PRN Hydrocortisone (hydrocortisone 1% cream), 1 APPLIC TP DAILY PRN for itching Miscellaneous Medications Tiotropium Br/Olodaterol HCl (Stiolto Respimat Inhal [place]), (Reported) Discontinued Medications Albuterol Sulfate (Ventolin Hfa), 2 PUFFS INH Q4HPRN PRN for wheezing Discontinued Reason: patient no longer taking Atorvastatin Calcium (Atorvastatin Calcium), 40 MG PO DAILY Discontinued Reason: patient no longer taking Carvedilol (Carvedilol), 2 TAB PO Q12H Discontinued Reason: ADR (Adverse Drug Rxn) Past Medical History Past Medical History: Peripheral Neuropathy, Atrial Fibrillation, COPD, Acute Kidney Injury, Diabetes, Chronic Back Pain Past Surgical History: noncontributory Patient History: Patient reports no known family medical history. Alcohol Use: Abuse Drug Use: marijuana Lives In: Home Review of Systems All Other Systems at this time: Reviewed and Negative Physical Exam Vital Signs: Temperature: 96.7, Source: Temporal, Heart Rate: 65, Respiratory Rate: 19, BP: 157/78, Pulse Oximetry: 96, Weight: 81.820 Oxygen Flow Rate: 2.0 General Appearance: alert, no apparent distress Neck: non-tender, full range of motion Head: normal Pupils/EOM/Fundus: PERRLA Respiratory: no respiratory distress, other (Crackles in the bases, left greater than right) Chest: no accessory muscle use Cardiovascular: regular rate, rhythm Cardiovascular Trace bilateral edema Gastrointestinal: non-tender Skin: warm/dry, normal color Orientation / Memory / CN: oriented x3 Motor / Sensory: no motor deficit, no sensory deficit Psych: appropriate Progress Results/Orders Results/Orders Orders - MARIAM RUVALCABA MD Chest,Single View (05/01/25 06:31) Ct Head (05/01/25 06:43) Covid19 Binax Poc Result Entry (05/01/25 06:47) Culture Blood (05/01/25 08:11) Cta Chest Pe (05/01/25 09:11) Completed Orders - MARIAM RUVALCABA MD Cbc/Diff (05/01/25 06:31) D-Dimer (05/01/25 06:31) PBNP (05/01/25 06:31) Chest,Single View (05/01/25 06:31) Electrocardiogram (05/01/25 06:31) BMP (05/01/25 06:31) Hs Troponin I W Calculations (05/01/25 06:31) Hs Troponin I W Calculations (05/01/25 08:31) Hs Troponin I W Calculations (05/01/25 09:31) Ct Head (05/01/25 06:43) Lacticsepsis (05/01/25 08:11) Normal Saline 1000ml (0.9% Sodium Chlori (05/01/25 08:15) Ceftriaxone/I3i-Xeruecot 1gm (Rocephin 1 (05/01/25 08:15) Azithromycin Tablet (Zithromax Tablet) (05/01/25 08:15) Cta Chest Pe (05/01/25 09:11) Furosemide Inj (Lasix Inj) (05/01/25 09:10) Furosemide 40mg Inj (Lasix Inj) (05/01/25 09:15) Ua W/Microscopic, Cult If Ind (05/01/25 09:02) Iohexol 350mg/Ml 100ml (Omnipaque 350mg/ (05/01/25 09:31) Medications Received in ER Medications (Trade) Dose Ordered Sig/Karl Route PRN Reason Start Time Stop Time Status Last Admin Dose Admin Sodium Chloride 1,000 ml @ 1,000 mls/hr ONCE ONCE IV 05/01/25 08:15 05/01/25 09:14 DC 05/01/25 08:23 1,000 MLS/HR Ceftriaxone Sodium 50 ml @ 100 mls/hr ONCE ONCE IV 05/01/25 08:15 05/01/25 08:44 DC 05/01/25 08:23 100 MLS/HR (Zithromax tablet) 500 mg ONCE ONCE PO 05/01/25 08:15 05/01/25 08:16 DC 05/01/25 08:24 500 MG (Lasix inj) 40 mg ONCE ONCE IV 05/01/25 09:10 05/01/25 09:12 DC 05/01/25 09:27 40 MG Vital Signs 05/01/25 05/01/25 05/01/25 05/01/25 06:22 06:37 06:38 06:50 Temp 96.7 Pulse 65 60 Resp 19 20 16 B/P (MAP) 157/78 168/74 (105) Pulse Ox 95 96 100 O2 Delivery Nasal Cannula* O2 Flow Rate 2.0 2 2.0 FiO2 28 05/01/25 10:51 Pulse 65 Resp 17 B/P (MAP) 134/101 Pulse Ox 98 Laboratory Tests Test 05/01/25 06:58 05/01/25 08:23 05/01/25 08:25 05/01/25 09:02 White Blood Count 10.6 Red Blood Count 4.08 L Hemoglobin 13.1 L Hematocrit 38.5 L Mean Corpuscular Volume 94.4 Mean Corpuscular Hemoglobin 32.0 H Mean Corpuscular Hemoglobin Concent 33.9 Red Cell Distribution Width 13.1 Platelet Count 183 Mean Platelet Volume 7.7 Neutrophils (%) (Auto) 64.6 Lymphocytes (%) (Auto) 23.8 Monocytes (%) (Auto) 6.1 Eosinophils (%) (Auto) 4.5 Basophils (%) (Auto) 1.0 Neutrophils # (Auto) 6.9 Lymphocytes # (Auto) 2.5 Monocytes # (Auto) 0.6 Eosinophils # (Auto) 0.5 Basophils # (Auto) 0.1 CBC Comment D-Dimer < 0.19 D-Dimer Comment Sodium Level 137 Potassium Level 4.3 Chloride Level 99 Carbon Dioxide Level 32.5 H Anion Gap 6 L Blood Urea Nitrogen 14 Creatinine 1.28 H Estimated GFR/1.73 m2 55 BUN/Creatinine Ratio 10.9 Glucose Level 246 H Lactic Acid Level 1.8 Calcium Level 8.8 Troponin I High Sensitivity 10 10 Pro-B-Type Natriuretic Peptide 218 H Albumin 3.4 Chemistry Comments Troponin I High Sens Percent Delta 0 Troponin I Hi Sens Absolute Change 0 SARS-CoV-2 Antigen (Rapid) Negative Urine Specimen Description Cln catch midstream Urine Color Straw Urine Clarity Clear Urine pH 6.0 Urine Specific [place] 1.010 Urine Protein Trace Urine Glucose (UA) 500 H Urine Ketones Negative Urine Occult Blood Negative Urine Nitrite Negative Urine Bilirubin Negative Urine Urobilinogen 0.2 Urine Leukocyte Esterase Negative Urine RBC None seen Urine WBC 0-4 Urine Squamous Epithelial Cells None seen Urine Bacteria None seen Urine Mucus None seen Urine Culture Indicated Not ind Volume Urine Centrifuged 10 ml Urine Comment Test 05/01/25 10:01 Troponin I High Sensitivity 11 Troponin I High Sens Percent Delta 10 Troponin I Hi Sens Absolute Change 1 Microbiology Date/Time Source Procedure Growth Status 05/01/25 08:27 Blood Arm Right Blood Culture - Preliminary NEGATIVE (LESS THAN 24 HOURS) Resulted Medical Decision Making Additional Information Patient in with some weakness and lethargy and mild cough over the past few days. Initially chest x-ray showed possible infiltrates or viral infection. Gave a g of Rocephin and azithromycin in the ED. gave a L of fluids. After this the patient did tell me he had been diagnosed with some heart failure. Recently put on Lasix. After a L of fluids he felt a little short of breath though he did sound the same and he was still 100% on his [address] angio was ordered and [address] angio shows pulmonary fibrosis and coronary artery calcification. Discussed this with the patient in his to give this information to PCP. CBC, chemistry troponin and urine unremarkable. COVID negative. Possible viral illness. Discharging home in good condition with care instructions. He has a follow up with PCP in a couple of days. He is to return here if new or worsening symptoms prior to follow up. Departure Disposition: HOME / SELF CARE / HOMELESS Impression: Primary Impression: Viral illness Condition: Stable Discharge Instructions: Viral Illness, Adult Additional Instructions: If your follow up in the 2nd. Return here if new or worsening symptoms prior to follow up. Your CT scan of your chest today did show pulmonary fibrosis and some calcification of the coronary arteries. Referrals: NO PRIMARY CARE PROVIDER (PCP) Education Educated: Patient, Family Educated regarding: diagnosis, treatment, prognosis, need for follow up Signature Scribe Signature: No scribe Attestation: No billibe MARIAM RUVALCABA MD May 01, 2025 06:46
[2025-05-01 07:13] LABS: MEAN PLATELET VOLUME 7.7 FL (7.4-10.4); RED CELL DISTRIBUTION WIDTH 13.1 % (11.5-14.5)
--- NOTE | 2025-05-01 07:33 | RADIOLOGY REPORT ---
CHEST RADIOGRAPH Indication: CHEST PAIN Technique: Single frontal view of the chest was obtained COMPARISON: DI CHEST,SINGLE VIEW on DOS: 01/23/25, DI CHEST,SINGLE VIEW on DOS: 12/28/24, CT CT CHEST o n DOS: 03/10/24, DI CHEST,SINGLE VIEW on DOS: 03/10/24, CHEST,TWO VIEWS on DOS: 06/22/22 FINDINGS: Lines and Tubes: None Lungs: Congestion Pleura: No effusion. No pneumothorax. Cardiomediastinal contours: Unremarkable Bones: Unremarkable IMPRESSION: Increased interstital prominence. This may represent pulmonary vascular congestion and/or viral pneum onia. Clinical correlation advised.
[2025-05-01 07:41] LABS: CREATININE 1.28 MG/DL (0.60-1.10); PRO BRAIN NATRIURETIC PEPTIDE 218 PG/ML (0-125); TOTAL CARBON DIOXIDE 32.5 MMOL/L (24-32); eCRCL 52 ML/MIN; eGFR 55 ML/MIN
[2025-05-01] MEDS: normal saline 1000ml 1,000 ML IV ONE (08:23)
[2025-05-01] MEDS: CefTRIAXone/D5W-Rocephin 1gm 50 ML IV ONE (08:23)
[2025-05-01 09:15] LABS: LEUKOCYTE ESTERASE ,URINE NEGATIVE (Neg); NITRITES, URINE NEGATIVE (Neg); OCCULT BLOOD,URINE NEGATIVE (Neg)
[2025-05-01 09:16] LABS: UA COLLECTION TYPE CLN CATCH MIDSTREAM
--- NOTE | 2025-05-01 09:20 | RADIOLOGY REPORT ---
CLINICAL HISTORY: fall, on blood thinners TECHNIQUE: Helical scanning was performed of the head from the skull base to the vertex. Multiplanar reconstructions were performed. This exam was performed according to our departmental dose optimizat ion program. Up-to-date CT equipment and radiation dose reduction techniques are utilized as appropri ate. CTDI 57.2 DLP 962.2 COMPARISON: CT CT CERVICAL SPINE on DOS: 12/28/24, CT CT HEAD on DOS: 12/28/24, VASC VL CAROTID on DOS: 03/10/24, CT CT CERVICAL SPINE on DOS: 03/10/24, CT CT HEAD on DOS: 03/10/24 FINDINGS: There is no evidence for acute intracranial hemorrhage, acute ischemic changes, mass, mass effect, or extra-axial fluid collection. There is no hydrocephalus or midline shift. There is no effacement of the cerebral sulci and basal subarachnoid cisterns. The walker-white matter differentiation is well eugene ntained. The imaged paranasal sinuses are clear. IMPRESSION: NO ACUTE INTRACRANIAL ABNORMALITY SEEN.
[2025-05-01 09:21] LABS: MUCUS STRANDS NONE SEEN /LPF (Neg); SQUAMOUS EPITHELIAL CELL,UR NONE SEEN /LPF (FEW)
[2025-05-01] MEDS ORDERED: METF-436 PO (09:21)
[2025-05-01] MEDS ORDERED: LOSA-416 PO (09:21)
[2025-05-01] MEDS ORDERED: FURO-150 PO (09:21)
[2025-05-01] MEDS ORDERED: CARV6.253 PO (09:21)
[2025-05-01] MEDS ORDERED: ATOR40TA PO (09:21)
[2025-05-01] MEDS ORDERED: TIOT4MIS3 (09:21)
[2025-05-01] MEDS ORDERED: PANT-47 PO (09:21)
[2025-05-01] MEDS ORDERED: MOME13HF8 INH (09:21)
[2025-05-01] MEDS: furosemide 10 MG/1 ML 10ml inj IV ONE (09:27)
--- NOTE | 2025-05-01 10:32 | RADIOLOGY REPORT ---
CLINICAL HISTORY: dyspnea TECHNIQUE: CT angiogram of the chest was performed with and without intravenous contrast. 3D reconstr ucted MIP images were created and archived on the PACS system under concurrent radiologist supervisio n. This exam was performed according to our departmental dose optimization program. Up-to-date CT equ ipment and radiation dose reduction techniques are utilized as appropriate. CTDI 24.7 DLP 962.4 COMPARISON: CT CT CHEST ABDOMEN PELVIS IV CON W/ IV CONTRAST on DOS: 12/28/24, CT CT CHEST on DOS: 03/01 FINDINGS: Chest: There was adequate opacification of the pulmonary artery tree. There is no filling defect to suggest acute pulmonary embolism. The thoracic aorta is normal in course and caliber. There are mild aortic arch atherosclerotic calcif ications. The main pulmonary artery dilated, measuring 3.3 cm The heart is normal in size with 3 vessel coronary artery calcifications.. No pericardial effusion is seen. No enlarged mediastinal, hilar, or axillary lymph node is present. The central airways are patent. There is no suspicious pulmonary nodule or area of consolidation. There is hkyd-et-jslfnest nonspecific fibrosis and both lungs with subpleural reticulations and tract ion Bronchiectasis / bronchioloelectasis. There is no pleural effusion present. Other: The visualized upper abdomen demonstrates cholecystectomy and colonic diverticulosis. There is a larg e duodenal type vertical at its 3rd segment. No acute osseous abnormality is identified. IMPRESSION: No evidence for acute pulmonary embolism. No Aortic dissection. No pneumonia. Rbhp-yc-idcivdyu pulmonary fibrosis. 3 vessel coronary artery calcifications. Pulmonary arterial hypertension. Cholecystectomy. Colonic diverticulosis.
[2025-05-01 10:51] VITALS: BP 134/101; PULSE 65; RESP 17; O2SAT 98
== END 2025-05-01 10:58 | disposition home or self-care (01) ==
LOC: ER 06:16
DX: B34.9 Viral infection, unspecified (principal); R53.1 Weakness; R51.9 Headache, unspecified; R06.02 Shortness of breath; E11.42 Type 2 diabetes mellitus with diabetic polyneuropathy; F12.90 Cannabis use, unspecified, uncomplicated; I10 Essential (primary) hypertension; J44.9 Chronic obstructive pulmonary disease, unspecified; I48.91 Unspecified atrial fibrillation; F17.210 Nicotine dependence, cigarettes, uncomplicated; Z79.01 Long term (current) use of anticoagulants; Z20.822 Contact with and (suspected) exposure to COVID-19
CPT/HCPCS: 36415; 70450; 71045; 71275; 80048; 81001; 83605; 83880; 84484; 85025; 85379; 87040; 87811; 93005; 96365; 96366; 96375; 99285; J0696; J1938; J7030; Q9967; A4615

== ENCOUNTER 2025-05-12 12:09 | Outpatient (CLI) | payer OTHER, BC, MEDICAID ==
[~2025-05-12 12:09] MED LIST changes: -ALBU18HF2 INH; -ATOR20TA66 PO; +ATOR40TA PO; -CARV3.1289 PO; +CARV6.253 PO; +FURO-150 PO; +LOSA-416 PO; +METF-436 PO; +MOME13HF8 INH; +PANT-47 PO; +TIOT4MIS3
== END 2025-05-12 23:59 | disposition home or self-care (01) ==
LOC: RAD 12:09
PROVIDERS: ATTEND Chiropractor
DX: M25.562 Pain in left knee (principal); M13.80 Other specified arthritis, unspecified site
CPT/HCPCS: 73562

== ENCOUNTER 2025-07-12 15:08 | Inpatient (IN) | payer BC, MEDICAID ==
[~2025-07-12] VITALS: Ht 175.3 cm; Wt 89.0 kg
--- NOTE | 2025-07-12 15:28 | ELECTROCARDIOGRAPH REPORT ---
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 OBINNA Finney Measurements Intervals [place] Rate: 84 P: -5 LA: 208 QRS: -33 QRSD: 76 T: 23 QT: 374 QTc: 443 Interpretive Statements Sinus rhythm Left ventricular hypertrophy Inferior infarct, old Anterior infarct, old Electronically Signed On 07-15-2025 18:00:[address] OBINNA Finney Please click the below link to view image of tracing.
--- NOTE | 2025-07-12 15:35 | Physician Documentation ---
History of Present Illness ~ Chief Complaint: Syncope Stated Complaint: SEE CHIEF COMPLAINT Time Seen by MD: 17:28 Primary Medical Doctor: Guevara Whittington DO HPI Very pleasant 74-year-old male that presents to the emergency department for evaluation of hypotension in his provider's office today and then again at home today. Patient reports that he has slight shortness of breath with a little bit of chest discomfort. Patient's reports that he seems unwell. Patient reports he was at the deputy clerk's office today who were following him for a toe infection when they noted that he had hypotension in the 90s on a systolic blood pressures today. The patient is hypertensive here in the emergency department today. Patient does report cough and feeling generally unwell for the past few weeks, patient reports this does feel like a previous episode of pneumonia. Medication Reconciliation Allergies: Coded Allergies: No Known Allergies (Unverified , 05/01/25) Scheduled Apixaban (Eliquis), 5 MG PO BID, (Reported) Aripiprazole (Aripiprazole), 1 TAB PO DAILY, (Reported) Atorvastatin Calcium* (Lipitor*), 1 TAB PO DAILY, (Reported) Carvedilol (Carvedilol), 1 TAB PO Q12H, (Reported) Fluoxetine Hcl (Fluoxetine Hcl), 1 TAB PO DAILY, (Reported) Furosemide* (Lasix*), 1 TAB PO BID, (Reported) Gabapentin (Gabapentin), 1 TAB PO TID, (Reported) Losartan* (Cozaar*), 1 TAB PO DAILY, (Reported) Metformin Hcl (Metformin Hcl), 1 TAB PO Q12H, (Reported) Mometasone Furoate (Asmanex Hfa), 2 PUFFS INH Q12H, (Reported) Pantoprazole Sodium (PROTONIX tablet), 1 TAB PO DAILY, (Reported) Miscellaneous Medications Tiotropium Br/Olodaterol HCl (Stiolto Respimat Inhal [place]), (Reported) Discontinued Medications Empagliflozin (Jardiance), 1 TAB PO DAILY, (Reported) Discontinued Reason: patient no longer taking Hydrocortisone (hydrocortisone 1% cream), 1 APPLIC TP DAILY PRN for itching Discontinued Reason: patient no longer taking Insulin Lispro (Humalog), 1 UNITS SQ TIDAC Discontinued Reason: patient no longer taking Losartan Potassium (Losartan Potassium), 50 MG PO DAILY Discontinued Reason: patient no longer taking Past Medical History Past Medical History: Peripheral Neuropathy, Atrial Fibrillation, COPD, Acute Kidney Injury, Diabetes, Chronic Back Pain Past Surgical History: noncontributory Patient History: Patient reports no known family medical history. Alcohol Use: Abuse Drug Use: marijuana Lives In: Home Review of Systems ROS As stated above in the HPI, otherwise all systems are reviewed and negative. Physical Exam Vital Signs: Temperature: 97.5, Source: Temporal, Heart Rate: 78, Respiratory Rate: 18, BP: 171/145, Pulse Oximetry: 94, Weight: 89.000 Oxygen Flow Rate: 0 Physical Exam VITALS: Reviewed and as above. GENERAL: Alert, nontoxic appearing, no apparent distress. RESPIRATORY: No increased work of breathing, no respiratory distress, speaking in full clear sentences, rhonchi in right lower lung field, otherwise clear CV: Regular rate and rhythm no murmur Progress Progress Note 1944: I spoke with hospitalist resident who kindly accepts patient for admission Results/Orders Results/Orders Orders - KATE COTTER Culture Blood (07/12/25 17:38) Page Hospitalist (07/12/25 19:22) Fill Out Med Reconciliation (07/12/25 19:22) Completed Orders - KATE COTTER PBNP (07/12/25 17:38) Lacticsepsis (07/12/25 17:38) Procalcitonin (07/12/25 18:36) Ceftriaxone/N4n-Tyelukag 1gm (Rocephin 1 (07/12/25 18:45) Azithromycin/Ns 500mg/250ml (Zithromax/N (07/12/25 18:45) Normal Saline 1000ml (0.9% Sodium Chlori (07/12/25 18:45) Lactic,2hr (07/12/25 19:23) Medications Received in ER Medications (Trade) Dose Ordered Sig/Karl Route PRN Reason Start Time Stop Time Status Last Admin Dose Admin Ceftriaxone Sodium 50 ml @ 100 mls/hr ONCE ONCE IV 07/12/25 18:45 07/12/25 19:14 DC 07/12/25 19:10 100 MLS/HR Azithromycin 250 ml @ 250 mls/hr ONCE ONCE IV 07/12/25 18:45 07/12/25 19:44 DC 07/12/25 19:42 250 MLS/HR (0.9% sodium chloride (NS) 1000ml IV soln) 1,000 ml ONCE ONCE IVB 07/12/25 18:45 07/12/25 18:50 DC 07/12/25 19:04 1,000 ML (morphine inj.) 1 mg Q4H PRN IV moderate pain (4-6) 07/12/25 19:40 07/13/25 01:20 1 MG Vital Signs 07/12/25 07/12/25 07/12/25 07/12/25 15:16 17:41 17:44 19:15 Temp 97.5 98.6 Pulse 78 80 82 Resp 18 18 16 16 B/P (MAP) 171/145 112/69 (83) 118/62 (80) Pulse Ox 94 97 97 O2 Flow Rate 0 Laboratory Tests Test 07/12/25 15:27 07/12/25 17:27 07/12/25 17:56 07/12/25 19:35 White Blood Count 13.8 H Red Blood Count 3.70 L Hemoglobin 11.7 L Hematocrit 33.9 L Mean Corpuscular Volume 91.4 Mean Corpuscular Hemoglobin 31.7 H Mean Corpuscular Hemoglobin Concent 34.6 Red Cell Distribution Width 13.8 Platelet Count 238 Mean Platelet Volume 7.2 L Neutrophils (%) (Auto) 72.7 Lymphocytes (%) (Auto) 17.5 L Monocytes (%) (Auto) 6.2 Eosinophils (%) (Auto) 2.9 Basophils (%) (Auto) 0.7 Neutrophils # (Auto) 10.1 H Lymphocytes # (Auto) 2.4 Monocytes # (Auto) 0.9 Eosinophils # (Auto) 0.4 Basophils # (Auto) 0.1 CBC Comment Sodium Level 135 Potassium Level 4.3 Chloride Level 99 Carbon Dioxide Level 32.6 H Anion Gap 3 L Blood Urea Nitrogen 18 Creatinine 1.62 H Estimated GFR/1.73 m2 42 BUN/Creatinine Ratio 11.1 Glucose Level 144 H Hemoglobin A1c 8.6 H Lactic Acid Level 2.5 H 1.8 Calcium Level 8.6 Troponin I High Sensitivity 9 8 7 Pro-B-Type Natriuretic Peptide 217 H 202 H Albumin 3.5 Chemistry Comments Troponin I High Sens Percent Delta 11 12 Troponin I Hi Sens Absolute Change -1 -1 Procalcitonin < 0.05 Microbiology Date/Time Source Procedure Growth Status 07/12/25 17:56 Blood Arm Left Blood Culture - Preliminary NEGATIVE (LESS THAN 24 HOURS) Resulted EKG/XRAY/CT/US/VASC/MRI EKG : Additional Comment EKG at 1527 interpreted by myself as: Sinus rhythm at a rate of 84, left axis deviation, no ST segment elevation or depression Chest X-Ray : Additional Comments Exam: CHEST,SINGLE VIEW CHEST RADIOGRAPH Indication: CP Technique: Single frontal view of the chest was obtained Comparison: DI CHEST,SINGLE VIEW on DOS: 05/01/25, DI CHEST,SINGLE VIEW on DOS: 01/23/25, DI CHEST,SINGLE VIEW on DOS: 12/28/24 FINDINGS: Lines and Tubes: None Lungs: Interstitial and alveolar opacities bilateral lungs. Left Mid lung zone Linear density. Pleura: No effusion. No pneumothorax. Cardiomediastinal contours: Unremarkable Bones: No acute osseous abnormality. IMPRESSION: Interstitial and alveolar type opacities of the bilateral lungs with Left Mid lung zone Linear density which may represent multifocal pneumonia in the right clinical setting with superimposed fibrotic changes. Electronically Signed by:MIMI SPANN DO Date & Time: 07/12/25 165 Dictated by: MIMI SPANN DO Dictation date and time: 07/12/25 1632 I have reviewed and agree with the radiology report. I have reviewed and interpreted the imaging as: Multiple focal consolidations Medical Decision Making Additional information obtaine: family Findings This is a 74-year-old male history of diabetes who presented from wound care with concern for low blood pressure, patient reports that he has been feeling unwell for several weeks and had a cough and chest discomfort when coughing, patient reports symptoms feel like when he had pneumonia previously. 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 Physical exam significant for rhonchi in right lower lung silver, chest x-ray significant for evidence of left-sided pneumonia. Patient is hemodynamically stable without clinical signs of sepsis however lactic acid was elevated, remaining labs reassuring. Given risk factors and elevated lactic acid patient would benefit from admission for IV antibiotics for community-acquired pneumonia. Hospitalist team contacted. Differential Dx:Considerations: Include: dehydration, DKA, hypoglycemia, hypernatremia, hyponatremia, hypoxia, postictal, CVA, drug overdose, ETOH intoxication, medication toxicity, infection - sepsis, respiratory failure Departure Disposition: 09 ADMITTED INPATIENT Admitted to Inpatient Unit: to hospitalist Impression: Primary Impression: Community acquired pneumonia Qualified Codes: J18.9 - Pneumonia, unspecified organism Condition: Guarded Referrals: NO PRIMARY CARE PROVIDER (PCP) Signature Scribe Signature: No scribe Attestation: The note accurately reflects work and decisions made by me.CHRISTY Mera 07/13/25 01:26 ERICA REID Jul 12, 2025 15:34 KATE COTTER Jul 12, 2025 17:41
[2025-07-12 15:41] LABS: MEAN PLATELET VOLUME 7.2 FL (7.4-10.4); RED CELL DISTRIBUTION WIDTH 13.8 % (11.5-14.5)
[2025-07-12 16:07] LABS: CREATININE 1.62 MG/DL (0.60-1.10); PRO BRAIN NATRIURETIC PEPTIDE 217 PG/ML (0-125); TOTAL CARBON DIOXIDE 32.6 MMOL/L (24-32); eCRCL 41 ML/MIN; eGFR 42 ML/MIN
--- NOTE | 2025-07-12 16:54 | RADIOLOGY REPORT ---
CHEST RADIOGRAPH Indication: CP Technique: Single frontal view of the chest was obtained Comparison: DI CHEST,SINGLE VIEW on DOS: 05/01/25, DI CHEST,SINGLE VIEW on DOS: 01/23/25, DI CHEST,SINGLE VIEW on DOS: 12/28/24 FINDINGS: Lines and Tubes: None Lungs: Interstitial and alveolar opacities bilateral lungs. Left Mid lung zone Linear density. Pleura: No effusion. No pneumothorax. Cardiomediastinal contours: Unremarkable Bones: No acute osseous abnormality. IMPRESSION: Interstitial and alveolar type opacities of the bilateral lungs with Left Mid lung zone Linear density which may represent multifocal pneumonia in the right clinical setting with superimposed fibrotic changes.
[2025-07-12] MEDS: normal saline 1000ML IV soln IVB ONE (19:04)
[2025-07-12] MEDS: CefTRIAXone/D5W-Rocephin 1gm 50 ML IV ONE (19:10)
[2025-07-12] MEDS ORDERED: magnesium hydroxide 30ml (MOM) UD suspension PO PRN (19:40)
[2025-07-12] MEDS ORDERED: potassium Cl 20 mEq SR tablet PO PRN ×2 (19:40)
[2025-07-12] MEDS ORDERED: potassium Cl 40MEQ/1/2NS 520ml 520 ML IV PRN (19:40)
[2025-07-12] MEDS ORDERED: magnesium Cl slow-release 64mg tablet PO PRN (19:40)
[2025-07-12] MEDS ORDERED: mag hydrox/Alum hydrox/simeth 30ml oral suspension PO PRN (19:40)
[2025-07-12] MEDS ORDERED: magnesium sulf-water 2g/50mL 50 ML IV PRN (19:40)
[2025-07-12] MEDS ORDERED: magnesium sulf-water 4G/100mL 100 ML IV PRN (19:40)
[2025-07-12] MEDS: azithromycin/NS 500mg/250ml 250 ML IV ONE (19:42)
[2025-07-12] MEDS ORDERED: albuterol 2.5 MG/3 ML nebule NEB PRN (20:00)
[2025-07-12] MEDS ORDERED: DEXTROSE 15 GM of carb/4 tabs (each vial/BOTTLE has 4 tablets) PO PRN ×2 (20:10)
[2025-07-12] MEDS ORDERED: glucagon, human recombinant 1mg kit SUBCUT PRN (20:10)
[2025-07-12] MEDS ORDERED: dextrose 50%-water 50ml dispensing syringe IV PRN ×2 (20:10)
[2025-07-12] MEDS: methylPREDNISolone sod succ/PF 40mg inj. IV SCH (20:33)
--- NOTE | 2025-07-12 21:15 | HISTORY AND PHYSICAL-Residence ---
History & Physical Providers to CC Resident Creating Document: ELIDA GARCIA, RES ~ History of Present Illness Primary Medical Doctor: Guevara Whittington DO Reason for Admit\Complaint: Pneumonia, EUGENIO History of Present Illness 74 year-old male with past medical history of Atrial fibrillation,COPD,Peripheral neuropathy,CKD ,type 2 diabetes mellitus,Hypertension,Hyperlipidemia presents to the emergency department for evaluation of hypotension noted earlier today. The patient was at his podiatrists office for follow-up of a left toe wound/infection when his systolic blood pressure was found to be in the 90s. He later noted low blood pressure at home as well. Upon arrival to the ED, the patient is hypertensive. He reports slight shortness of breath and mild chest discomfort. His states that he appears generally unwell. The patient describes feeling unwell for the past few weeks, similar to a previous episode of pneumonia. For the past 3 weeks, he has felt like he had pneumonia but did not seek care. Over the past 1 week, he has had a stuffy nose, frequent cough, and scant greenish-yellow sputum production daily. The patient has shortness of breath and uses 2 L home oxygen. He sleeps with one pillow and denies orthopnea or paroxysmal nocturnal dyspnea .He denies fever, chills, nausea/vomiting. In ED-patient received 1 L bolus of normal saline, IV ceftriaxone and azithromycin once Allergies: Coded Allergies: No Known Allergies (Unverified , 05/01/25) Home Medications Home Medications Active Reported PROTONIX tablet (Pantoprazole Sodium) 40 Mg Tablet.dr 1 Tab PO DAILY 30 Days Lasix* (Furosemide) 20 Mg Tablet 1 Tab PO BID Cozaar* (Losartan Potassium) 50 Mg Tablet 1 Tab PO DAILY 30 Days Carvedilol 6.25 Mg Tablet 1 Tab PO Q12H 30 Days Lipitor* (Atorvastatin Calcium) 40 Mg Tablet 1 Tab PO DAILY 30 Days Metformin Hcl 500 Mg Tablet 1 Tab PO Q12H 30 Days Asmanex Hfa (Mometasone Furoate) 100 Mcg/Actuation Hfa.aer.ad 2 Puffs INH Q12H 30 Days Stiolto Respimat Inhal [place] (Tiotropium Br/Olodaterol HCl) 2.5 Mcg-2.5 Mcg/Actuation Mist.inhal Eliquis (Apixaban) 5 Mg Tablet 5 Mg PO BID Gabapentin 600 Mg Tablet 1 Tab PO TID Aripiprazole 2 Mg Tablet 1 Tab PO DAILY Fluoxetine Hcl 40 Mg Capsule 1 Tab PO DAILY Past Medical History Past Medical History Atrial fibrillation COPD Peripheral neuropathy EUGEINO ON CKD type 2 diabetes mellitus Hypertension Hyperlipidemia Chronic back pain Past Surgical History Surgical History Comment Cholecystectomy Family History Family History: Patient reports no known family medical history. 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 - Patient lives in home with Drinks alcohol occasionally,Patient does not use tobacco but he smokes cannabis and has 2nd and exposure from his , denies any use of recreational drugs, is retired and able to ambulate with the help of cane Alcohol Use: Abuse Drug Use: Marijuana Lives In: Home ROS Constitutional: Reports: weakness Eyes: Reports: no symptoms reported ENT: Reports: no symptoms reported Respiratory: Reports: cough, shortness of breath Gastrointestinal: Reports: poor appetite Genitourinary: Reports: no symptoms reported Male Genitalia: Reports: no symptoms reported Neurological: Reports: no symptoms reported Musculoskeletal: Reports: no symptoms reported Integumentary: Reports: other (wound on left second toe ) Allergic/Immunologic: Reports: no symptoms reported Hematologic/Lymphatic: Reports: no symptoms reported Endocrine: Reports: no symptoms reported Psychiatric: Reports: no symptoms reported Exam Vitals: Vital Signs Date Time Temp Pulse Resp B/P (MAP) Pulse Ox O2 Delivery O2 Flow Rate FiO2 07/12/25 21:04 98.6 87 16 134/64 (87) 97 07/12/25 15:16 0 General: General: Patient looks tired but he is able to answer most of the questions HEENT: Atraumatic, normocephalic, EOMI, anicteric sclera ; mild conjunctiva pallor Neck: Trachea midline. Supple, full range of motion, no JVD Cardiac: Regular rhythm, regular rate with no murmurs all over the precordium. Respiratory: On auscultation coarse crackles and mildly reduced breath sounds over the bilateral lower lung silver, no tachypnea, no wheezing ,rub or rales, Chest wall is symmetric and without deformity. Gastrointestinal: Abdomen symmetric, non-distended, soft, non-tender, normal bowel sounds x4 quadrant, normoactive, no hepatosplenomegaly Neurological: Mental status exam: alert and consciousness, orientation, memory, speech - Cranial nerve test: Cranial nerves 2-12 intact - Motor system: Normal Nutrition, normal tone, Power 5/5, no involuntary movements - Sensory system: Intact - Reflex testing: Biceps, triceps and knee reflexes 2+ - Cerebellar: Normal Skin: Warm and dry Extremities : Mild +1 pitting edema noted on left leg, peripheral pulses felt, No deformities, wound covered with a dressing present on the left second toe Psychiatric:Appropriate mood and affect,No hallucinations or suicidal ideation Diagnostic Data Last Recorded Lab Results: 07/12/25 1527 07/12/25 1527 Advance Care Planning Advanced Care plannin - 30 Minutes Additional Plan 74 years old male with past medical history Atrial fibrillation,COPD,Peripheral neuropathy,CKD ,type 2 diabetes mellitus,Hypertension,Hyperlipidemia,Chronic back pain he is currently evaluated for sepsis Sepsis 2/2 multifocal pneumonia Patient has a history of COPD WBC count-13.8, procalcitonin 0.05, lactic acid 2.5/1.8 Preliminary blood cultures are negative Chest j-oqk-Fwwtngwhogmm and alveolar type opacities of the bilateral lungs with Left Mid lung zone Linear density which may represent multifocal pneumonia in the right clinical setting with superimposed fibrotic changes. In ED patient received 1 L bolus normal saline, ceftriaxone 1 g IV, Zithromax 500 mg IV once Started IV ceftriaxone 1 g, IV daily, Zithromax 500 mg daily, DuoNebs q.4h , albuterol q.2h p.r.n., Solu-Medrol 40 mg IV b.i.d., incentive spirometry Follow up with blood culture, daily lab, ESR/CRP Continue monitoring the patient in telemetry EUGENIO on chronic kidney disease stage III Patient has a baseline creatinine of 1.28 and EGFR of 55 Type 2 diabetes mellitus-poorly controlled HB A1c-8.6 Patient has a history of type 2 diabetes and takes metformin at home Blood glucose 144 Started on hyperglycemia/ hypoglycemia protocol Normocytic normochromic anemia Patient hemoglobin is 11.6 Follow up with iron studies Hypertension Patient takes carvedilol 6.25 mg p.o. b.i.d., losartan 50 mg daily for high blood pressure Today his blood pressure was continuously low Started home meds but hold if systolic blood pressure is less than 100 Congestive heart failure with preserved ejection fraction. LVEF is 65-70%.-01/23 Not in acute exacerbation Pro BNP is mildly elevated-202 Patient has a history of congestive heart failure echocardiogram on 01/23 shows LVEF 65-70% Continue home med carvedilol, losartan, furosemide 20 mg p.o. b.i.d. Hyperlipidemia Continue home med atorvastatin 40 mg p.o. daily Follow up with lipid panel History of anxiety/depression Continue home meds aripiprazole/fluoxetine History of peripheral neuropathy Continue home med gabapentin 600 mg p.o. t.i.d. History of atrial fibrillation Heart rate [address] Gross outpatient Patient is on Eliquis for AFib, continue home med Eliquis Advance care: I spent a total of 16 minutes reviewing various resuscitative measures/ACP with patient. The patient decided to be full code Code Status: Full DVT prophylaxis: Eliquis Analgesia/Sedation: Morphine Line/tube: Peripheral Nutrition: Renal diet PT: Ordered Prognosis: Guarded Disposition: Patient will be monitored in PCU with 24 hours telemetry, follow up with blood culture lEida Garcia PGY1-Internal Medicine Resident Patient was seen and evaluated using HIPPA complaint AV device Agree with plan as discussed with the resident Ava Fernando MD Date of Service: Jul 12, 2025 Billing Provider: AVA FERNANDO MD, SATISH, ANALI Jul 12, 2025 21:15 AVA FERNANDO MD Jul 13, 2025 02:04
[2025-07-12] MEDS: normal saline 1000ml 1,000 ML IV SCH (21:45)
[2025-07-12 22:00] VITALS: BP 159/75; PULSE 92; RESP 14; TEMP 97.7; O2SAT 100
[2025-07-12 22:09] LABS: CHOL/HDL RATIO 2.9 (0.00-4.99); LDL CHOLESTEROL 31 MG/DL (50-100)
[2025-07-12] MEDS: K and/or MAG REPLACEMENT MC SCH (22:34)
[2025-07-12] MEDS: docusate sod 100mg capsule PO SCH (22:35)
[2025-07-12] MEDS: INSULIN LISPRO 100 UNIT/ML INSULN.PEN MULTI-DOSE SQ SCH (22:37)
[2025-07-12 22:49] VITALS: PULSE 89; RESP 16; O2SAT 93
[2025-07-12] MEDS: ipratropium/albuterol 3ml nebule NEB SCH (22:49)
[2025-07-12 22:56] VITALS: PULSE 89; RESP 16
[2025-07-12 23:00] VITALS: BP 182/88; RESP 22; O2SAT 94
[2025-07-12 23:19] LABS: LEUKOCYTE ESTERASE ,URINE NEGATIVE (Neg); NITRITES, URINE NEGATIVE (Neg); OCCULT BLOOD,URINE NEGATIVE (Neg)
[2025-07-12 23:24] LABS: UA COLLECTION TYPE NON-SPECIFIED
[2025-07-12 23:35] LABS: OSMOLALITY UA 237.0 MOSM/K (50-1400)
[2025-07-12 23:37] LABS: CREATININE,URINE RANDOM 28.0 MG/DL; TOTAL PROTEIN,URINE RANDOM 15.9 MG/DL
[2025-07-12 23:53] LABS: UA EOSINOPHILS NO EOS /HPF
[2025-07-13] VITALS (16 sets, daily range): BP systolic 117–172; BP diastolic 64–93; PULSE 76–94; RESP 1–22; TEMP 96.9–98.6; O2SAT 89–97
[2025-07-13 00:02] LABS: % IRON SATURATION 14 % (11-46)
[2025-07-13 06:54] LABS: MEAN PLATELET VOLUME 7.5 FL (7.4-10.4); RED CELL DISTRIBUTION WIDTH 13.2 % (11.5-14.5)
[2025-07-13] MEDS: CefTRIAXone/D5W-Rocephin 1gm 50 ML IV SCH (06:55)
[2025-07-13] MEDS: carvedilol 6.25mg tablet PO SCH (07:08)
[2025-07-13 07:22] LABS: CREATININE 1.22 MG/DL (0.60-1.10); TOTAL CARBON DIOXIDE 26.8 MMOL/L (24-32); eCRCL 55 ML/MIN; eGFR 58 ML/MIN
[2025-07-13] MEDS: azithromycin/NS 500mg/250ml 250 ML IV SCH (09:45)
[2025-07-13] MEDS: ondansetron/PF 4mg/2ml inj IV PRN (10:05)
[2025-07-13] MEDS: FLU VACC TS2025-26(6MOS UP)/PF (FLULAVAL) 45 MCG/0.5 ML SYRINGE IMVAC ONE (12:47)
--- NOTE | 2025-07-13 17:14 | PROGRESS NOTE- Residence ---
Progress Note - Resident Providers to CC Resident Creating Document: ROMARIO GARCIA RES ~ Antibiotic Timeout Antibiotic Ordered?: Yes Subjective Patient was seen and examined bedside. He is saturating well on room air. He complains of cough with greenish sputum. He is not in distress. He denies fever, chills and any new medical complaints. Objective Vital Signs Date Time Temp Pulse Resp B/P (MAP) Pulse Ox O2 Delivery O2 Flow Rate FiO2 07/13/25 15:40 85 15 Room Air 07/13/25 15:39 96 0 21 07/13/25 15:00 96.9 154/93 (113) Result Diagram: 07/13/25 0607 07/13/25 0607 Awake , alert, and oriented x4, resting comfortably in the bed, in no acute distress HEENT: Atraumatic, normocephalic, EOMI, anicteric sclera ; pink conjunctiva, dry mucous membranes Neck: Trachea midline. Supple, full range of motion, no JVD Cardiac: Regular rhythm, regular rate with no murmurs all over the precordium. Respiratory: Decreased breath sounds bilaterally with mild wheezing, no tachypnea, rub or rales, Chest wall is symmetric and without deformity. Gastrointestinal: Abdomen symmetric, non-distended, soft, non-tender, normal bowel sounds, no hepatosplenomegaly Musculoskeletal: Left leg pitting edema 1+, no cyanosis, dressing intact on left 2nd toe with no bleeding or soakage Neurological: Speech is clear, alert, and oriented x 4. No motor deficit, diminished sensations in bilateral lower extremities, deep tendon reflexes normal, cerebellar intact. Cranial nerves II-XII intact. Skin: Warm and dry Assessment Assessment 74-year-old male with history of AFib, COPD, peripheral neuropathy, type 2 diabetes mellitus, hypertension, hyperlipidemia admitted for management of acute respiratory failure 2/2 acute on chronic COPD exacerbation due to community- acquired pneumonia. Plan Plan Acute respiratory failure 2/2 acute on chronic COPD exacerbation community-acquired pneumonia with Gram-positive and Gram-negative bacteria Patient is saturating well on room air Patient has crepitations and wheezing on examination SIRS criteria not met, sepsis ruled out WBC downtrended to 8.8 Chest n-xoo-Diesizgsqmro and alveolar type opacities of the bilateral lungs with Left Mid lung zone Linear density which may represent multifocal pneumonia in the right clinical setting with superimposed fibrotic changes. Continue IV ceftriaxone 1 g, azithromycin 500 mg Continue IV Solu-Medrol 40 mg b.i.d. Continue ipratropium/albuterol q.4h, albuterol q.2h p.r.n, monitor heart rate as albuterol can increase heart rate and patient has history of Afib Continue incentive spirometry Follow up COVID test Follow up sputum cultures EUGENIO, most likely prerenal due to renal tubular stasis Creatinine has downtrended from 1.62 to 1.22 BUN and BUN/Cr are normal FENA 1.6%, indeterminate NS at 75 mL/hour Monitor BMP Type 2 diabetes mellitus HB A1c-8.6 Patient has a history of type 2 diabetes and takes metformin at home Blood glucose 213 Continue hyperglycemia/ hypoglycemia protocol 75 gm carb controlled diet Normocytic normochromic anemia H&H- 12.6/36.1 Serum iron is low-36 Ferritin, TIBC and % saturation are normal Outpatient follow up Hypertension Blood pressure is on the higher side Continued home medication carvedilol 6.25 mg p.o. b.i.d., losartan 50 mg HFpEF with LVEF of 65-70% in November 23, Not in acute exacerbation Pro BNP is mildly elevated-202 Patient has a history of congestive heart failure echocardiogram on 01/23 shows LVEF 65-70% Patient takes furosemide 20 mg p.o. b.i.d. at home Held lasix as patient is dry and creatinine is elevated Hyperlipidemia Continued home med atorvastatin 40 mg p.o. daily ASCVD score 15.1% History of anxiety/depression Continued home meds aripiprazole/fluoxetine History of peripheral neuropathy Continued home med gabapentin 600 mg p.o. t.i.d. Atrial fibrillation, controlled rate Tele shows sinus rhythm Patient follows with Dr. Gross outpatient Continued Eliquis 5 mg b.i.d. Substance abuse Patient takes marijuana Follow up urine tox screen environmental services associate and substance abuse navigator consulted Code Status: Full DVT prophylaxis: Eliquis Analgesia/Sedation: Morphine Line/tube: Peripheral Nutrition: Carb controlled diet PT: Ordered Prognosis: Guarded Disposition: Continue IV antibiotics and steroids, PT eval and DC plan Resident attestation: The patient note has been reviewed and supervised by senior residents PGY-2/ PGY-3. Patient was seen, examined and discussed with attending physician, Dr. Maggie Garcia MD Internal Medicine resident, PGY-1 Date of Service: Jul 13, 2025 Billing Provider: SHRUTHI SEGURA MD,ROMARIO, RES Jul 13, 2025 17:14
[2025-07-14] VITALS (20 sets, daily range): BP systolic 143–176; BP diastolic 71–91; PULSE 81–94; RESP 14–20; TEMP 97.4–98.1; O2SAT 93–98
[2025-07-14 06:18] LABS: MEAN PLATELET VOLUME 7.4 FL (7.4-10.4); RED CELL DISTRIBUTION WIDTH 13.5 % (11.5-14.5)
[2025-07-14 06:35] LABS: CREATININE 0.96 MG/DL (0.60-1.10); TOTAL CARBON DIOXIDE 28.6 MMOL/L (24-32); eCRCL 70 ML/MIN; eGFR 77 ML/MIN
[2025-07-14] MEDS: ondansetron 4mg rapidly disintigrating tab PO PRN (07:21)
[2025-07-14] MEDS: DICLOFENAC SODIUM 1% gel 1 50GM tube TP SCH (09:20)
--- NOTE | 2025-07-14 17:41 | PROGRESS NOTE- Residence ---
Progress Note - Resident Providers to CC Resident Creating Document: ROMARIO GARCIA RES ~ Antibiotic Timeout Antibiotic Ordered?: Yes Subjective Patient was seen and examined bedside. He is saturating well on room air. He is not in distress. He states that there is improvement in cough. Objective Vital Signs Date Time Temp Pulse Resp B/P (MAP) Pulse Ox O2 Delivery O2 Flow Rate FiO2 07/14/25 15:52 84 18 Room Air 07/14/25 15:46 93 0 21 07/14/25 11:00 97.4 149/82 (104) Result Diagram: 07/14/25 0548 07/14/25 0548 Awake , alert, and oriented x4, resting comfortably in the bed, in no acute distress HEENT: Atraumatic, normocephalic, EOMI, anicteric sclera ; pink conjunctiva Neck: Trachea midline. Supple, full range of motion, no JVD Cardiac: Regular rhythm, regular rate with no murmurs all over the precordium. Respiratory: Decreased breath sounds bilaterally with mild expiratory wheezing and crepitations, no tachypnea, rubs. Chest wall is symmetric and without deformity. Gastrointestinal: Abdomen symmetric, non-distended, soft, non-tender, normal bowel sounds, no hepatosplenomegaly Musculoskeletal: Left leg pitting edema 1+, no cyanosis, dressing intact on left 2nd toe with no bleeding or soakage Neurological: Speech is clear, alert, and oriented x 4. No motor deficit, diminished sensations in bilateral lower extremities, deep tendon reflexes normal, cerebellar intact. Cranial nerves II-XII intact. Skin: Warm and dry Assessment Assessment 74-year-old male with history of AFib, COPD, peripheral neuropathy, type 2 diabetes mellitus, hypertension, hyperlipidemia admitted for management of acute respiratory failure 2/2 acute on chronic COPD exacerbation due to community- acquired pneumonia. Plan Plan Acute respiratory failure 2/2 acute on chronic COPD exacerbation community-acquired pneumonia with Gram-positive and Gram-negative bacteria Patient is saturating well on room air Vitals are stable WBC uptrended to 13.6, most likely due to steroids Continue IV ceftriaxone 1 g, azithromycin 500 mg Continue IV Solu-Medrol 40 mg b.i.d. Continue ipratropium/albuterol q.4h, albuterol q.2h p.r.n, monitor heart rate as albuterol can increase heart rate and patient has history of Afib Continue incentive spirometry Follow up COVID test and sputum cultures EUGENIO, most likely prerenal due to renal tubular stasis Creatinine has downtrended to 0.96 BUN and BUN/Cr are normal FENA 1.6%, indeterminate Discontinued fluids Monitor BMP Type 2 diabetes mellitus HB A1c-8.6 Patient has a history of type 2 diabetes and takes metformin at home Blood glucose 232 Carb controlled diet Started lantus 15 units HS and lispro 5 units before food and continue hyperglycemia/ hypoglycemia protocol Monitor glucose levels Normocytic normochromic anemia H&H- 10. Serum iron is low-36 Ferritin, TIBC and % saturation are normal Outpatient follow up Hypertension Blood pressure is on the higher side Continue home medication losartan 50 mg Increased dosage of carvedilol from 6.25 mg b.i.d. to 12.5 mg p.o. b.i.d. HFpEF with LVEF of 65-70% in November 23, Not in acute exacerbation Pro BNP is mildly elevated- Patient has a history of congestive heart failure echocardiogram on 01/23 shows LVEF 65-70% Patient takes furosemide 20 mg p.o. b.i.d. at home Creatinine has downtrended, will evaluate tomorrow and plan to restart home medication lasix Hyperlipidemia Continued home med atorvastatin 40 mg p.o. daily ASCVD score 15.1% History of anxiety/depression Continued home meds aripiprazole/fluoxetine History of peripheral neuropathy Continued home med gabapentin 600 mg p.o. t.i.d. Atrial fibrillation, controlled rate Tele shows sinus rhythm Patient follows with Dr. Gross outpatient Continued Eliquis 5 mg b.i.d. Substance abuse Patient uses marijuana Follow up urine tox screen environmental services supervisor and substance abuse navigator consulted Code Status: Full DVT prophylaxis: Eliquis Analgesia/Sedation: Morphine Line/tube: Peripheral Nutrition: Carb controlled diet PT: Ordered Prognosis: Guarded Disposition: Continue IV antibiotics and steroids, Monitor glucose, PT eval and DC plan Resident attestation: The patient note has been reviewed and supervised by senior residents PGY-2/ PGY-3. Patient was seen, examined and discussed with attending physician, Dr. Maggie Garcia MD Internal Medicine resident, PGY-1 Date of Service: Jul 14, 2025 Billing Provider: SHRUTHI SEGURA MD, PREETHI, RES Jul 14, 2025 17:41
[2025-07-14] MEDS: INSULIN LISPRO 100 UNIT/ML INSULN.PEN MULTI-DOSE SQ SCH (20:31)
[2025-07-14] MEDS: insulin glargine (Lantus) pen - multi-dose SQ SCH (20:31)
[2025-07-15 02:00] VITALS: BP 158/78; PULSE 88; RESP 12; TEMP 97.6; O2SAT 94
[2025-07-15 06:00] VITALS: BP_SYST 118; BP_SYST 125; BP_DIAS 68; BP_DIAS 69; PULSE 85; PULSE 87; RESP 20; TEMP 97.7; O2SAT 98
[2025-07-15 07:00] VITALS: BP 172/90
[2025-07-15 07:26] LABS: MEAN PLATELET VOLUME 7.6 FL (7.4-10.4); RED CELL DISTRIBUTION WIDTH 13.7 % (11.5-14.5)
[2025-07-15 07:31] VITALS: PULSE 78; RESP 18; O2SAT 95; O2SAT 96
[2025-07-15 07:38] LABS: CREATININE 1.26 MG/DL (0.60-1.10); TOTAL CARBON DIOXIDE 27.1 MMOL/L (24-32); eCRCL 53 ML/MIN; eGFR 56 ML/MIN
[2025-07-15] MEDS ORDERED: GABA-1405 PO (07:40)
[2025-07-15 11:00] VITALS: BP 164/89; PULSE 87; PULSE 90; RESP 18; RESP 22; TEMP 97.8; O2SAT 95; O2SAT 96
[2025-07-15 11:05] VITALS: PULSE 88; RESP 16
[2025-07-15 12:17] LABS: INFLUENZA TYPE A ANTIGEN RAPID NEGATIVE (Negative); INFLUENZA TYPE B ANTIGEN RAPID NEGATIVE (Negative)
[2025-07-15] MEDS ORDERED: CEFD300C3 PO (12:54)
[2025-07-15] MEDS ORDERED: FURO-150 PO (12:54)
[2025-07-15] MEDS ORDERED: PRED10TA23 PO (12:54)
[2025-07-15] MEDS ORDERED: LACT1CAP26 PO (12:54)
[2025-07-15] MEDS ORDERED: CARV6.253 PO (12:54)
[2025-07-15] MEDS ORDERED: ALBU18HF2 INH (12:55)
--- NOTE | 2025-07-15 18:21 | DISCHARGE SUMMARY-Residence ---
Discharge Summary Providers to CC Resident Creating Document: LIYA HERNADEZ JOHNNY, RES ~ Discharge Summary Admission Diagnosis: Sepsis, Multifocal pneumonia, AMS Hospital Course DATE OF ADMISSION: 07/12/2025 DATE OF DISCHARGE: 07/15/2025 Discharge disposition: Home Imaging: X-ray chest 07/12/2025: Interstitial and alveolar type opacities of the bilateral lungs with Left Mid lung zone Linear density which may represent multifocal pneumonia in the right clinical setting with superimposed fibrotic changes. Discharge Diagnosis\Comment: Acute on chronic hypoxic respiratory failure COPD exacerbation Sepsis Community-acquired pneumonia with Gram-positive and Gram-negative bacteria EUGENIO, most likely prerenal due to severe dehydration Type 2 diabetes mellitus Normocytic normochromic anemia Hypertension HFpEF with LVEF of 65-70% in November 23, Not in acute exacerbation Hyperlipidemia History of anxiety/depression History of peripheral neuropathy Atrial fibrillation, controlled rate Substance abuse Operations\Procedures: None Consultants: None Complications: None Condition on DC: Stable New Medications: Albuterol Sulfate (Ventolin Hfa) 90 Mcg Hfa.aer.ad 2 PUFFS INH Q4HPRN PRN for wheezing for 30 Days, #18 GM 0 Refills Cefdinir (Cefdinir) 300 Mg Capsule 1 CAP PO Q12H for 3 Days, #6 CAP 0 Refills Lactobacillus Rhamnosus (Culturelle) 10 Billion Cell Capsule 1 EACH PO BID for 30 Days, #60 CAP Prednisone (Prednisone) 10 Mg Tablet 0 PO DAILY, #42 TAB Take 4 tabs daily x4 days, then 3 daily x4 days 2 daily x4 days 1 daily x4 days 1/2 daily x4 days then STOP Changed Medications: Carvedilol (Carvedilol) 6.25 Mg Tablet 2 TAB PO Q12H for 30 Days, #120 TAB 0 Refills (Changed from: 1 TAB; 60) Furosemide* (Lasix*) 20 Mg Tablet 1 TAB PO Q48H for 30 Days, #15 TAB (Changed from: BID) Continued Medications: Apixaban (Eliquis) 5 Mg Tablet 5 MG PO BID, TAB Aripiprazole (Aripiprazole) 2 Mg Tablet 1 TAB PO DAILY Atorvastatin Calcium* (Lipitor*) 40 Mg Tablet 1 TAB PO DAILY for 30 Days, #30 TAB Fluoxetine Hcl (Fluoxetine Hcl) 40 Mg Capsule 1 TAB PO DAILY Losartan* (Cozaar*) 50 Mg Tablet 1 TAB PO DAILY for 30 Days, #30 TAB Metformin Hcl (Metformin Hcl) 500 Mg Tablet 1 TAB PO Q12H for 30 Days, #60 TAB 0 Refills Mometasone Furoate (Asmanex Hfa) 100 Mcg/Actuation Hfa.aer.ad 2 PUFFS INH Q12H for 30 Days, #13 GM 0 Refills Pantoprazole Sodium (PROTONIX tablet) 40 Mg Tablet.dr 1 TAB PO DAILY for 30 Days, #30 TAB 0 Refills Tiotropium Br/Olodaterol HCl (Stiolto Respimat Inhal Hayti) 2.5 Mcg-2.5 Mcg/Actuation Mist.inhal Discharge Summary: The patient is a 74-year-old male with past medical history of atrial fibrillation, COPD, peripheral neuropathy, CKD, type 2 diabetes mellitus, hypertension, hyperlipidemia, presented to the ED with concerns of hypotension. 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 Therefore he presented to the ED. The patient also reported shortness of breath and mild chest discomfort since the past few weeks. He also had congestion, cough with greenish sputum production. On evaluation in the ED, the patient's blood pressure was high. X-ray chest showed findings suggestive of multifocal pneumonia bilaterally. WBC count was 13.8, elevated lactic acid 2.5, procalcitonin was within normal limits. He was started on IV ceftriaxone 1 g daily and azithromycin 500 mg daily. He was also started on breathing treatments with ipratropium and albuterol and IV methylprednisolone 40 mg b.i.d. He was also clinically dehydrated, creatinine was 1.62. He was started on IV fluids which improved his kidney function. The patient has shown rapid progression during the course of his hospital stay. On the day of discharge, the patient was stable and had no new complaints. We had to increase his dose of carvedilol from 6.25 mg to 12.5 mg twice daily because of hypertension. He is being discharged home. Advice at discharge: Follow up with PCP in 1 week. Continue incentive spirometry every hour while awake. Continue the antibiotic cefdinir for 3 more days. Continue tapering doses of prednisone and stop as recommended. Please use the ventolin (albuterol) inhaler that we prescribed as needed for wheezing and shortness of breath. Use the other two home inhalers as usual. We have increased the dose of your blood pressure medication, coreg. Monitor your blood pressures every day and maintain a log. Review the log with your PCP for dose adjustments in your medications. Cut down your lasix to 20 mg every other day as you are getting dehydrated. Follow up with Dr. Gross. In the event of worsening of symptoms, call 911 or go to the ER immediately. Examination at discharge: Awake , alert, and oriented x4, resting comfortably in the bed, in no acute distress HEENT: Atraumatic, normocephalic, EOMI, anicteric sclera ; pink conjunctiva Neck: Trachea midline. Supple, full range of motion, no JVD Cardiac: Regular rhythm, regular rate with no murmurs all over the precordium. Respiratory: Decreased breath sounds bilaterally with mild expiratory wheezing and crepitations, much improved from yesterday, no tachypnea, rubs. Chest wall is symmetric and without deformity. Gastrointestinal: Abdomen symmetric, non-distended, soft, non-tender, normal bowel sounds, no hepatosplenomegaly Musculoskeletal: No edema, no cyanosis, dressing intact on left 2nd toe with no bleeding or soakage Neurological: Speech is clear, alert, and oriented x 4. No motor deficit, diminished sensations in bilateral lower extremities, deep tendon reflexes normal, cerebellar intact. Cranial nerves II-XII intact. Skin: Warm and dry Vital Signs Date Time Temp Pulse Resp B/P (MAP) Pulse Ox O2 Delivery O2 Flow Rate FiO2 07/15/25 11:05 88 16 Room Air 0.0 07/15/25 11:00 96 21 07/15/25 11:00 97.8 164/89 (114) Laboratory Tests Test 07/14/25 05:48 07/14/25 06:35 07/14/25 12:22 07/14/25 17:16 White Blood Count 13.6 X10'3 Red Blood Count 3.42 X10'6 Hemoglobin 10.9 g/dl Hematocrit 31.0 % Mean Corpuscular Volume 90.5 FL Mean Corpuscular Hemoglobin 32.0 PG Mean Corpuscular Hemoglobin Concent 35.3 g/dL Red Cell Distribution Width 13.5 % Platelet Count 222 X10'3 Mean Platelet Volume 7.4 FL Neutrophils (%) (Auto) 86.5 % Lymphocytes (%) (Auto) 8.4 % Monocytes (%) (Auto) 5.0 % Eosinophils (%) (Auto) 0 % Basophils (%) (Auto) 0.1 % Neutrophils # (Auto) 11.7 X10'3 Lymphocytes # (Auto) 1.1 X10'3 Monocytes # (Auto) 0.7 X10'3 Eosinophils # (Auto) 0.0 X10'3 Basophils # (Auto) 0.0 X10'3 CBC Comment Sodium Level 139 MMOL/L Potassium Level 4.3 MMOL/L Chloride Level 103 MMOL/L Carbon Dioxide Level 28.6 MMOL/L Anion Gap 7 Blood Urea Nitrogen 14 MG/DL Creatinine 0.96 MG/DL Estimated GFR/1.73 m2 77 ML/MIN BUN/Creatinine Ratio 14.6 Glucose Level 232 MG/DL Calcium Level 8.1 MG/DL Total Bilirubin 0.3 MG/DL Aspartate Amino Transf (AST/SGOT) 13 U/L Alanine Aminotransferase (ALT/SGPT) 13 U/L Alkaline Phosphatase 59 IU/L Total Protein 6.5 G/DL Albumin 3.1 G/DL Globulin 3.4 G/DL Albumin/Globulin Ratio 0.9 Chemistry Comments Glucometer 224 mg/dl 280 mg/dl 243 mg/dl Test 07/14/25 20:23 07/15/25 06:24 07/15/25 06:32 07/15/25 10:56 Glucometer 236 mg/dl 224 mg/dl 273 mg/dl White Blood Count 15.4 X10'3 Red Blood Count 3.88 X10'6 Hemoglobin 12.3 g/dl Hematocrit 35.7 % Mean Corpuscular Volume 92.1 FL Mean Corpuscular Hemoglobin 31.7 PG Mean Corpuscular Hemoglobin Concent 34.5 g/dL Red Cell Distribution Width 13.7 % Platelet Count 255 X10'3 Mean Platelet Volume 7.6 FL Neutrophils (%) (Auto) 84.6 % Lymphocytes (%) (Auto) 9.6 % Monocytes (%) (Auto) 5.8 % Eosinophils (%) (Auto) 0 % Basophils (%) (Auto) 0 % Neutrophils # (Auto) 13.1 X10'3 Lymphocytes # (Auto) 1.5 X10'3 Monocytes # (Auto) 0.9 X10'3 Eosinophils # (Auto) 0.0 X10'3 Basophils # (Auto) 0.0 X10'3 CBC Comment Sodium Level 137 MMOL/L Potassium Level 4.2 MMOL/L Chloride Level 101 MMOL/L Carbon Dioxide Level 27.1 MMOL/L Anion Gap 9 Blood Urea Nitrogen 17 MG/DL Creatinine 1.26 MG/DL Estimated GFR/1.73 m2 56 ML/MIN BUN/Creatinine Ratio 13.5 Glucose Level 235 MG/DL Calcium Level 8.4 MG/DL Total Bilirubin 0.4 MG/DL Aspartate Amino Transf (AST/SGOT) 14 U/L Alanine Aminotransferase (ALT/SGPT) 21 U/L Alkaline Phosphatase 61 IU/L Total Protein 7.0 G/DL Albumin 3.4 G/DL Globulin 3.6 G/DL Albumin/Globulin Ratio 0.9 Chemistry Comments Test 07/15/25 11:34 Influenza Type A Antigen Negative Influenza Type B Antigen Negative SARS-CoV-2 Antigen (Rapid) Negative The patient was seen and evaluated with attending physician, Dr. Segura on the day of discharge. Time spent on discharge 35 minutes. *Problems/Diagnosis: (1) Acute exacerbation of chronic obstructive pulmonary disease (COPD) (2) Pneumonia Status: Acute Total Time Spent on D/C: > 30 Minutes Date of Service: Jul 15, 2025 Billing Provider: SHRUTHI SEGURA MD, SOWMYA MANJARI, RES Jul 15, 2025 18:20
== END 2025-07-15 15:52 | disposition home or self-care (01) | DRG 871 ==
LOC: ER 15:10 → ED HOLD 19:57 → PCU 3S 22:10
PROVIDERS: ADMIT Internal Medicine; ATTEND Family Medicine
DX: A41.9 Sepsis, unspecified organism (principal); J15.69 Pneumonia due to other Gram-negative bacteria; J96.21 Acute and chronic respiratory failure with hypoxia; J15.9 Unspecified bacterial pneumonia; I50.30 Unspecified diastolic (congestive) heart failure; I11.0 Hypertensive heart disease with heart failure; J44.0 Chronic obstructive pulmonary disease with (acute) lower respiratory infection; N17.9 Acute kidney failure, unspecified; Z79.01 Long term (current) use of anticoagulants; E11.42 Type 2 diabetes mellitus with diabetic polyneuropathy; F32.A Depression, unspecified; J44.1 Chronic obstructive pulmonary disease with (acute) exacerbation; I48.91 Unspecified atrial fibrillation; E86.0 Dehydration; Z20.822 Contact with and (suspected) exposure to COVID-19; E78.5 Hyperlipidemia, unspecified; F41.9 Anxiety disorder, unspecified; Z79.899 Other long term (current) drug therapy; Z79.84 Long term (current) use of oral hypoglycemic drugs
CPT/HCPCS: 36415; 71045; 80048; 80053; 80061; 81003; 82570; 82728; 82948; 83036; 83540; 83550; 83605; 83880; 83935; 84133; 84145; 84156; 84300; 84484; 85025; 85651; 86140; 87040; 87081; 87207; 87804; 87811; 93005; 94640; 94760; 96365; 99285; A4615; A6222; A6446; A6449; G0378; J0456; J0696; J1815; J2270; J2405; J2919; J7030